=== PATIENT | female | born 1975 | race Caucasian/White ===

== ENCOUNTER 2019-09-17 12:29 | Outpatient (CLI) | payer OTHER, SELFPAY ==
--- NOTE | ~2019-09-17 | XR_ITS ---
EXAMINATION: XR lg joint inject/asp w image DATE: 09/17/2019 13:28 INDICATION: Left hip arthritis. TECHNIQUE: A time-out was performed to verify the patient's name, date of , and procedure to b e performed. The procedure including the risks, benefits, and alternatives was discussed with the pat ient. Risks discussed included bleeding and infection. The patient understood the risks and agreed to proceed. The skin overlying the left hip joint was prepped and draped in usual sterile fashion. An esthetic was administered with 1% lidocaine subcutaneously. A 22 G needle was advanced under fluoros copic guidance into the joint. Injection of 1 mL of Omnipaque 240 confirmed intra-articular position of the needle. Subsequently, injectate consisting of 2 mL 0.5% bupivacaine and 1 mL 80 mg/mL Depo-M edrol was instilled. The needle was removed and the entry site was cleaned and dressed. There were no immediate complications. Fluoroscopy exposure time was 0.1 minutes. The total number of images was 2. FINDINGS: Real-time fluoroscopy demonstrates the needle in the left hip joint. Patient's pain prior t o procedure:12/06. Patient's pain following the procedure: 04/08. IMPRESSION: 1. Left hip joint injection of local anesthetic and steroid with decrease in the patient's presenting pain. Reviewed, dictated and finalized at location A. IMPRESSION: 1. Left hip joint injection of local anesthetic and steroid with decrease in th e patient's presenting pain.
== END 2019-09-17 12:30 | disposition home or self-care (01) ==
LOC: ANHIMG 12:40
PROVIDERS: PCP Family Medicine; Visit Provider Nurse Practitioner Family
DX: M16.12 Unilateral primary osteoarthritis, left hip (principal)
CPT/HCPCS: 20610; 77002; J1040; Q9966

== ENCOUNTER 2020-02-04 19:41 | Inpatient (IN) | payer OTHER, SELFPAY ==
--- NOTE | ~2020-02-04 | CT_ITS ---
EXAMINATION: CT abdomen pelvis w con INDICATION: Lower abdominal abscess TECHNIQUE: Computed tomographic images of the abdomen and pelvis were obtained after the administrati on of 100 cc of Omnipaque 350 intravenous contrast. The dose-length product (DLP) was 1515.68 mGy-cm. Automated exposure control and iterative reconstruction technique were employed. COMPARISON: 01/29/2018 FINDINGS: The lung bases are clear. The heart size is normal. The liver is diffusely low in attenuati on when compared with the spleen, consistent with hepatic steatosis. There is a stable 1.7 cm subcaps ular enhancing lesion of the left hepatic lobe, likely a flash filling hemangioma or possibly a hepat ic adenoma. The spleen, pancreas, and adrenal glands are normal. The gallbladder is surgically absent . There is a 3 mm nonobstructing stone of the right kidney upper pole. An adjacent area of chronic co rtical scarring is noted in the right kidney. There is a 10 mm cyst of the right kidney. The left kid garett is unremarkable. No pathologically enlarged abdominal or pelvic lymph nodes are identified. There is a moderate volume of colonic stool. There is no free intraperitoneal gas or evidence of bowel obs truction. The appendix is normal. There is a 3.1 x 1.6 cm abscess with surrounding soft tissue edema involving the lower aspect of the pannus just left of midline. There is fluid attenuation in the endo metrial canal of unclear etiology. IMPRESSION: 1. 3.1 x 1.6 cm soft tissue abscess involving the pannus of the left lower quadrant with surrounding cellulitis. 2. Fluid attenuation in the endometrial canal of unclear etiology. Follow-up with nonemergent pelvic ultrasound is recommended. 3. Diffuse hepatic steatosis. Reviewed, dictated and finalized at location A. TION MAKER IMPRESSION: 1. 3.1 x 1.6 cm soft tissue abscess involving the pannus of the left lower quad rant with surrounding cellulitis. 2. Fluid attenuation in the endometrial canal of unclear etiology. Follow-up [facility] nonemergent pelvic ultrasound is recommended. 3. Diffuse hepatic steatosis.
[2020-02-04 19:44] VITALS: BP 143/92; PULSE 135; RESP 15; TEMP 36.4; O2SAT 100
--- NOTE | 2020-02-04 21:17 | ECG_ITS ---
Measurements Intervals Gardner Rate: 112 P: 59 AR: 181 QRS: 34 QRSD: 83 T: 36 QT: 327 QTc: 447 Interpretive Statements SINUS TACHYCARDIA ABNORMAL ECG Electronically Signed On 02-05-2020 7:00:42 STUDENT DEAN by Narinder Francois D.O.
[2020-02-04 21:44] LABS: Basophils Percent Auto 0.3 % (0.2-1.2); Eosinophils Absolute Auto 0.1 K/mm3 (0-0.3); Eosinophils Percent Auto 0.8 % (0-4.4); Hematocrit 46.9 % (37.0-47.0); Immature Granulocyte Absolute 0.09 K/mm3 (0.00-0.031); Immature Granulocyte Percent A 0.6 % (0-0.5); Lymphocytes Percent Auto 10.1 % (18.3-44.2); Mean Corpuscular HGB Conc 34.1 g/dl (32-36); Mean Corpuscular Hemoglobin 33.1 pg (26-34); Mean Corpuscular Volume 97.1 fl (80-100); Mean Platelet Volume 9.6 fl (7.4-10.4); Monocytes Absolute Auto 1.7 K/mm3 (0.1-0.6); Monocytes Percent Auto 11.5 % (2.6-8.5); Neutrophils Absolute Auto 11.3 K/mm3 (1.3-6.7); Neutrophils Percent Auto 76.7 % (45.5-73.1); Platelet Count Result 243 k/mm3 (150-375); Red Blood Count 4.83 M/mm3 (4.2-5.4); Red Cell Distribution Width 12.8 % (11.5-14.5); White Blood Count 14.8 K/mm3 (4.5-10.0)
[2020-02-04 21:53] LABS: INR 1.1; Prothrombin Time 14.7 Seconds (11.1-14.7)
[2020-02-04 21:54] LABS: Partial Thromboplastin Time 26.8 SECONDS (22.3-36.8)
[2020-02-04 21:58] LABS: Glucose Point of Care 259 (65-105)
[2020-02-04 21:59] LABS: Alanine Aminotransferase 43 U/L (4-35); Albumin Level 3.8 g/dL (3.5-5.1); Alkaline Phosphatase 150 U/L (38-126); Anion Gap 11 mmol/L (8-16); Aspartate Amino Transferase 27 U/L (14-36); Bilirubin,Total 0.6 mg/dL (0.2-1.3); Blood Urea Nitrogen 11 mg/dL (7-17); Calcium 9.4 mg/dL (8.4-10.2); Carbon Dioxide 18 mmol/L (22-30); Chloride 103 mmol/L (98-107); Estimated CRCL calculation 137 ml/min; Estimated Glomerular Filt Rate > 60; Glucose 286 mg/dL (65-105); Potassium 4.1 mmol/L (3.4-5.0); Sodium 132 mmol/L (137-145)
[2020-02-04 22:01] VITALS: BP 138/73; PULSE 115; RESP 16; O2SAT 99
[2020-02-04] MEDS: SODIUM CHLORIDE 0.9% IV 1,000 ML 999 ML IV CONT (22:23)
--- NOTE | 2020-02-04 22:26 | ED.SKABFB ---
HPI - Skin/Abscess/Foreign Bdy General Chief complaint: Skin/Abscess/Foreign Body Stated complaint: i have boils Time Seen by Provider: 02/04/20 20:58 Source: patient Mode of arrival: ambulatory Limitations: no limitations History of Present Illness HPI narrative: This patient is a 44 year old female with history of diabetes mellitus who presents for evaluation of an abdominal wall abscess. She states she noticed what appeared to be small pimple to her lower abdominal wall 5 days ago. She has been using an over the counter medication PRID to help bring wound to head. She noticed worsening swelling and redness to the area 3 days ago. She is having severe pain when she walks due to her pain. She also noticed purulent drainage yesterday. She reports nausea but no fever. She is fatigued. She denies vomiting. She does not check her blood sugar regularly and she does not take medication for her diabetes. Related Data Home Medications Medication Instructions Recorded Confirmed ibuprofen 200 mg capsule 200 mg PO Q6H PRN 03/29/19 02/05/20 meloxicam 7.5 mg tablet 7.5 mg PO DAILY PRN 08/22/19 02/05/20 Symbicort 2 puff INHALATION DAILY 02/05/20 02/05/20 albuterol sulfate [Ventolin HFA] 2 puff INHALATION Q6H PRN 02/05/20 02/05/20 Allergies Allergy/AdvReac Type Severity Reaction Status Date / Time No Known Allergies Allergy Unknown Verified 02/04/20 19:49 Review of Systems Review of Systems: All systems reviewed & are unremarkable except as noted in HPI and below Constitutional: Constitutional: Denies chills, Reports fatigue and Denies fever(s) Respiratory: Respiratory: Denies dyspnea Gastrointestinal: Gastrointestinal: Reports abdominal pain, Denies diarrhea, Reports nausea and Denies vomiting PMFSH Past Medical History Medical History (Updated 02/05/20 @ 06:42 by Cathy Mackey MD) Actinic keratosis Contusion of finger of right hand Degenerative joint disease of left hip History of basal cell carcinoma (BCC) Lateral epicondylitis of right elbow Left hip pain Skin cancer screening Trochanteric bursitis, left hip Surgical History Surgical History (Updated 02/05/20 @ 06:36 by Cathy Mackey MD) H/O tubal ligation Hx of cholecystectomy Family History Family History Other Diabetes mellitus Family history of alcoholism Family history of arthritis Family history of malignant neoplasm Family history of mental disorder Social History Social History Smoking packs per day: 0.5 Smoking cigarettes per day: 10.0 Years smoked: 30 Smoking pack-years: 15.00 Smoking status: Current every day smoker Tobacco type: cigarettes Alcohol intake: former Substance use: never Gender identity (if verbalized by the patient): Female Sexual Orientation (if Verbalized by the Patient): Straight or Heterosexual Spiritual care concerns: No Exam Const: General: alert; No ill appearing Nutritional Appearance: obese Orientation/consciousness: patient oriented x3 Other: mild distress due to pain HENMT: Head: normocephalic and atraumatic Face and sinus: face symmetric Throat: posterior oropharynx normal, tonsils normal and uvula midline Eyes: EOM: EOMs intact bilaterally Resp: Effort & Inspection: normal respiratory effort and no retractions Auscultation: clear to auscultation bilaterally Cardio: Rate: tachycardic Rhythm: regular rhythm Heart sounds: no murmurs GI: GI Palp: Yes Soft to palpation, Yes Tenderness to palpation present (GI) (at lower abdominal wall at location of cellulitis and abscess) and No Rigid due to palpation Skin: Other: patient with large lower abdominal wall area of erythema with an open wound draining odorous dark brown fluid, their is a central area of necrosis Neuro: General: patient oriented x3 and moves all extremities Psych: Mental Status: mental s
[2020-02-04] MEDS: HYDROcodone/acetaminophen (*CRX) 5-325 MG TABLET 1 TAB PO (22:41)
[2020-02-04 22:49] LABS: Add Urine Microscopic? YES; Appearance Urine Clear (Clear); Bacteria Urine Trace /hpf; Bilirubin Urine Negative (Negative); Blood Urine 1+ (Negative); Color Urine Yellow (Yellow); Glucose Urine UA 3+ mg/dL (Negative); Ketones Urine 2+ mg/dL (Negative); Leukocyte Esterase Ur Negative LEU/UL (Negative); Mucus Urine Rare /lpf; Nitrate Urine Negative (Negative); Protein Urine 2+ mg/dL (Negative); Squamous Epithelial Cell Urine Few /hpf (Few); Urobilinogen Urine Negative mg/dL (<2.0); WBC Urine 0-3 /hpf
[2020-02-04 23:47] LABS: Fractional Inspired Oxygen 21 %; PO2 VBG 30.6 mmHg (35.0-45.0)
[2020-02-04 23:49] LABS: Device ROOM AIR; pH VBG 7.244 (7.300-7.400)
[2020-02-05] LABS: Beta-Hydroxybutyrate/Acetoacetate 3.53 mmol/L (0.02-0.27)
[2020-02-05 00:12] LABS: Glucose Point of Care 281 (65-105)
[2020-02-05] MEDS: LIDOCAINE HCL 2% LOCAL INJ 20 ML VIAL (00:15)
[2020-02-05 01:17] LABS: Anion Gap 12 mmol/L (8-16); Blood Urea Nitrogen 8 mg/dL (7-17); Calcium 8.5 mg/dL (8.4-10.2); Carbon Dioxide 14 mmol/L (22-30); Chloride 104 mmol/L (98-107); Estimated CRCL calculation 166 ml/min; Estimated Glomerular Filt Rate > 60; Glucose 269 mg/dL (65-105); Magnesium 1.7 mg/dL (1.6-2.3); Phosphorus 3.1 mg/dL (2.5-4.5); Potassium 3.8 mmol/L (3.4-5.0); Sodium 130 mmol/L (137-145)
[2020-02-05 01:26] LABS: Hemoglobin A1C 10.4 % (<5.7)
--- NOTE | 2020-02-05 02:08 | PM.IMHP ---
H&P: HPI History of Present Illness Date/Time: 02/05/20 02:08 Chief complaint: Diabetic ketoacidosis, sepsis, Narrative: This is a 44-year-old diabetic female who presented to the hospital [facility] with a lower abdominal wall infection. She describes that this started out as a small boil this past Monday and very quickly worsened. Since then her infection has become a lot larger and has ulcerated and is draining if foul smelling discharge. She has an black necrotic area in the center of her wound. The patient denies any previous history of MRSA. she also denies any associated fever, chills, chest pain, shortness of breath, cough, palpitations, dysuria, hematuria, diarrhea, rectal bleeding, or lower extremity swelling. [facility] she is also complaining of abdominal discomfort around her wound. The patient was evaluated emergency room and she was found to be septic with an elevated white blood cell count of 14,800 and tachycardia. Patient has been started on vancomycin IV and imipenem. ER provider has debrided a part of her wound. Routine labs also demonstrated metabolic acidosis although the patient does not have an elevated anion gap. ER provider has consulted general surgery for possible wound debridement. She has also consulted our production line assembler, Dr. Portillo. The patient has no other complaints. Review of Systems Review of Systems: All systems reviewed & are unremarkable except as noted in HPI and below PMFSH Past Medical History Medical History Actinic keratosis Contusion of finger of right hand Degenerative joint disease of left hip History of basal cell carcinoma (BCC) Lateral epicondylitis of right elbow Left hip pain Skin cancer screening Trochanteric bursitis, left hip Type 2 diabetes mellitus Surgical History Surgical History H/O tubal ligation History of delivery x 1 History of knee surgery Hx of cholecystectomy laparoscopic Family History Family History Other Diabetes mellitus Family history of alcoholism Family history of arthritis Family history of malignant neoplasm Family history of mental disorder Social History Social History Smoking packs per day: 0.5 Smoking cigarettes per day: 10.0 Years smoked: 30 Smoking pack-years: 15.00 Smoking status: Current every day smoker Tobacco type: cigarettes Alcohol intake: former Substance use: never Gender identity (if verbalized by the patient): Female Sexual Orientation (if Verbalized by the Patient): Straight or Heterosexual Spiritual care concerns: No Meds Home Medications and Allergies Home Medications Medication Instructions Recorded Confirmed Type ibuprofen 200 mg capsule 200 mg PO Q6H PRN 03/29/19 02/05/20 History meloxicam 7.5 mg tablet 7.5 mg PO DAILY PRN 08/22/19 02/05/20 History Symbicort 2 puff INHALATION DAILY 02/05/20 02/05/20 History albuterol sulfate [Ventolin HFA] 2 puff INHALATION Q6H PRN 02/05/20 02/05/20 History Allergies Allergy/AdvReac Type Severity Reaction Status Date / Time No Known Allergies Allergy Unknown Verified 02/04/20 19:49 Vital Signs Vital Signs - 24 hr 02/04/20 19:44 02/04/20 22:01 Temperature 36.4 C Pulse Rate 135 H 115 H Respiratory Rate 15 16 Blood Pressure 143/92 H 138/73 Pulse Oximetry 100 99 Exam Const: General: cooperative, no acute distress, alert, awake and ill appearing chronically Nutritional Appearance: obese morbidly obese Orientation/consciousness: patient oriented x3 HENMT: Head: normal to inspection General nose exam: Normal external nose present Face and sinus: normal facial exam Mouth: Yes Normal oral and palatal mucosa present and Yes oropharynx normal Eyes: Pupils: Equal, round and reactive pupils present EOM: EO
[2020-02-05 02:44] VITALS: BP 143/79; PULSE 107; RESP 18; O2SAT 97
[2020-02-05 02:49] VITALS: BMI 100.4
[2020-02-05 03:13] LABS: Alveolar/Arterial O2 Gradient 24.9 mmHg; Base Excess ABG -10.4 mEq/l (+/-2.0); Fractional Inspired Oxygen 21 %; HCO3 ABG 13.4 mEq/l (22.0-26.0); Oxygen Content ABG 19.4 %vol (16.0-22.0); Oxyhemoglobin 95.4 % THb (90.0-100.0); PCO2 ABG 25.2 mmHg (35.0-45.0); PO2 ABG 94.7 mmHg (80.0-100.0); PO2 FiO2 Ratio Arterial Blood 4.51 %; Total Hemoglobin 14.4 g/dL (12.0-18.0); pH ABG 7.344 (7.350-7.450)
[2020-02-05 03:14] LABS: Modified Allen's Test Pass; Site Drawn LEFT RADIAL
[2020-02-05] MEDS: MORPHINE SULFATE (*CRX) 4 MG/ML INJ IV PUSH (03:49)
[2020-02-05] MEDS: SODIUM CHLORIDE 0.9% IV 1,000 ML 150 ML IV CONT ×3 (03:50→14:45)
[2020-02-05 04:00] VITALS: BP 125/68; PULSE 109; RESP 18; TEMP 36.8; O2SAT 98
[2020-02-05 04:38] LABS: Basophils Absolute Auto 0.1 K/mm3 (0.0-0.1); Basophils Percent Auto 0.5 % (0.2-1.2); Eosinophils Absolute Auto 0.2 K/mm3 (0-0.3); Eosinophils Percent Auto 1.1 % (0-4.4); Hematocrit 43.4 % (37.0-47.0); Hemoglobin 14.6 g/dL (12.0-15.0); Immature Granulocyte Absolute 0.08 K/mm3 (0.00-0.031); Immature Granulocyte Percent A 0.5 % (0-0.5); Lymphocytes Absolute Auto 2.33 K/mm3 (0.9-3.2); Lymphocytes Percent Auto 15.5 % (18.3-44.2); Mean Corpuscular HGB Conc 33.6 g/dl (32-36); Mean Corpuscular Hemoglobin 32.2 pg (26-34); Mean Corpuscular Volume 95.6 fl (80-100); Mean Platelet Volume 9.8 fl (7.4-10.4); Monocytes Absolute Auto 2.4 K/mm3 (0.1-0.6); Monocytes Percent Auto 16.2 % (2.6-8.5); Neutrophils Percent Auto 66.2 % (45.5-73.1); Platelet Count Result 212 k/mm3 (150-375); Red Blood Count 4.54 M/mm3 (4.2-5.4); Red Cell Distribution Width 12.6 % (11.5-14.5); White Blood Count 15.1 K/mm3 (4.5-10.0)
[2020-02-05 05:01] LABS: Anion Gap 8 mmol/L (8-16); Blood Urea Nitrogen 7 mg/dL (7-17); Calcium 8.3 mg/dL (8.4-10.2); Carbon Dioxide 15 mmol/L (22-30); Chloride 106 mmol/L (98-107); Estimated CRCL calculation 295 ml/min; Estimated Glomerular Filt Rate > 60; Glucose 277 mg/dL (65-105); Magnesium 1.7 mg/dL (1.6-2.3); Potassium 3.6 mmol/L (3.4-5.0); Sodium 129 mmol/L (137-145)
[2020-02-05 06:00] VITALS: BP 127/85; PULSE 109; RESP 16; TEMP 36.8; O2SAT 99
[2020-02-05 08:00] VITALS: BP 137/69; PULSE 118; PULSE 121; RESP 26; TEMP 36.8; O2SAT 98
[2020-02-05] MEDS: POTASSIUM CHLORIDE 20 MEQ PACKET (FOR LIQUID) 40 MEQ PO (08:09)
[2020-02-05] MEDS: ONDANSETRON INJ 4 MG/2 ML VIAL IV PUSH (08:13)
[2020-02-05 08:19] LABS: Glucose Point of Care 240 (65-105)
[2020-02-05] MEDS: INSULIN ASPART (*BKC) 100 UNITS/ML SUB-Q ×4 (08:59→21:18)
[2020-02-05] MEDS: MAGNESIUM SULF 2 GM/WATER 50ML 2 GM/50 ML BAG IVPB (09:00)
[2020-02-05 10:00] VITALS: BP 145/70; PULSE 110; PULSE 111; O2SAT 31
--- NOTE | 2020-02-05 11:22 | PM.CNGS ---
Assessment and Plan Assessment and plan (1) Abdominal wall abscess: Code(s): L02.211 - Cutaneous abscess of abdominal wall Status: Acute Assessment and Plan: CT scan reviewed and discussed with the patient in detail. She has evidence of a 3.1 x 1.6 cm soft tissue abscess involving the pannus of the left lower quadrant with surrounding cellulitis. The ED physician attempted an incision and drainage of the abscess at an area just below the open necrotic wound. There is currently packing in this spot. On my exam, the patient is still extremely tender and appears to have purulent drainage coming from the lower abdominal incision, along with a necrotic wound above the incision that may require excisional debridement. It does not appear that the patient would tolerate any bedside debridement or further exploration of the abscess in the area of the previously made incision. I discussed the patient's case with Dr. Medina. He will plan to proceed with incision and drainage of the lower abdominal wall abscess, with possible excisional debridement tomorrow morning in the operating room with sedation. Description of the procedure, risks, benefits, indications, and expected outcomes were discussed with the patient in detail. She agrees to proceed. This will allow us to gain source control and adequately drain the abscess, along with being able to perform a debridement of the necrotic wound. Continue broad-spectrum IV antibiotics, IV fluids, and analgesics as needed. It is okay from a surgical standpoint for the patient to eat today and we will make her NPO after midnight. Thank you for allowing us to see the patient in consultation and we will continue to follow along with you. (2) Abdominal wall cellulitis: Code(s): L03.311 - Cellulitis of abdominal wall Status: Acute Assessment and Plan: See plan above. (3) Leukocytosis: Qualifiers: Leukocytosis type: unspecified Qualified Code(s): D72.829 - Elevated white blood cell count, unspecified Code(s): D72.829 - Elevated white blood cell count, unspecified Status: Acute Assessment and Plan: WBC count of 15,100 today. Continue IV antibiotics and trend labs. See plan above. (4) Uncontrolled diabetes mellitus: Code(s): E11.65 - Type 2 diabetes mellitus with hyperglycemia Status: Chronic Assessment and Plan: Hgb A1C 10.4. She has stopped all her medications and has not had any home medications for about 3 years. I discussed with her the importance of tight glycemic control for healing. Diabetic management per hospitalist. (5) Sepsis: Code(s): A41.9 - Sepsis, unspecified organism Status: Acute Assessment and Plan: Criteria met on admission. Tachycardia and leukocytosis in the setting of an abscess. Wound culture pending. Blood cultures pending. Continue to trend labs. Continue IV fluids and broad-spectrum IV antibiotics. Will need source control, with plans to go to the OR tomorrow morning for incision and drainage and possible debridement. See plan above. (6) Tachycardia: Code(s): R00.0 - Tachycardia, unspecified Status: Acute Assessment and Plan: Improving with current treatment. Current heart rate 110. EKG showed sinus tachycardia. Likely multifactorial due to infection, sepsis, and pain. Management per Hospitalist. Additional Plan Discussed the patient's plan of care and case with Dr. Medina. History of Present Illness Consult details Consult date: 02/05/20 Reason for consult: other (Lower abdominal wall cellulitis and abscess) Requesting physician: Cathy Mackey MD Narrative: This is a 44-year-old obese female with history of type 2 diabetes mellitus, who presented to the emergency department last night with complaints lower abdominal redness and pain. The patient reportedly has been a known diabetic for about 11 years and decided to stop all her diabetes
[2020-02-05 12:00] VITALS: BP 130/68; PULSE 111; PULSE 112; RESP 25
[2020-02-05] MEDS: INSULIN GLARGINE (*BKC) 100 UNITS/ML 20 UNITS SUB-Q (12:21)
[2020-02-05 12:27] LABS: Glucose Point of Care 267 (65-105)
--- NOTE | 2020-02-05 13:42 | WPDCNINT ---
Assessment and Plan Assessment and plan (1) Sepsis: Code(s): A41.9 - Sepsis, unspecified organism Status: Acute Assessment and Plan: Secondary to abdominal wall abscess. 3.1 x 1.6 cm soft tissue abscess involving the pannus of the left lower quadrant with surrounding cellulitis. Patient presented with tachycardia and leukocytosis. Her lactic acid level was normal and she was never hypertensive S/P brief I and D done by ED physician. Patient seen by general surgery now and plan for thorough debridement tomorrow morning in OR Continue IV fluid. Patient was given 1 L saline bolus in ED Patient is on vancomycin and Imipenem which will be continued (2) Abdominal wall abscess: Code(s): L02.211 - Cutaneous abscess of abdominal wall Status: Acute Assessment and Plan: See above (3) Abdominal wall cellulitis: Code(s): L03.311 - Cellulitis of abdominal wall Status: Acute Assessment and Plan: See plan above. (4) Uncontrolled diabetes mellitus: Code(s): E11.65 - Type 2 diabetes mellitus with hyperglycemia Status: Chronic Assessment and Plan: Hgb A1C 10.4. She has stopped all her medications and has not had any home medications for about 3 years. I discussed with her the importance of tight glycemic control for healing. Initially plan was to start IV insulin but her anion gap closed. She has been started now on Lantus and sliding scale. will adjust depending on the response (5) Tachycardia: Code(s): R00.0 - Tachycardia, unspecified Status: Acute Assessment and Plan: Secondary to sepsis improved with rehydration fluids (6) COPD (chronic obstructive pulmonary disease): Code(s): J44.9 - Chronic obstructive pulmonary disease, unspecified Status: Acute Assessment and Plan: Patient is a chronic smoker with 15 pack-year history. States she has COPD. No wheezing on exam Continue bronchodilators p.r.n. and Symbicort Additional Plan Discussed the patient's plan of care and case with general surgery nurse practitioner. Plan to transfer patient out of ICU today DVT prophylaxis -SCDs for now. Defer chemoprophylaxis to post I&D tomorrow morning Stress ulcer prophylaxis - NA Nutrition -diabetic diet Code Status - Full Code Newspaper Library Manager Consult Note Consult date: 02/05/20 Time Seen: 08:00 HPI: aNt Chavarria is a 44 year old morbidly obese diabetic female who presented to the hospital last night with a lower abdominal wall pain and infection. She describes that this started out as a small boil this past Monday and very quickly worsened with increased redness and pain. She denied any fever. She was diagnosed with abscess of the abdominal wall. Mild debridement was done at bedside by ED physician. Patient was given IV fluid bolus and started on antibiotics. Patient also was hypoglycemic and was diagnosed with DKA. IV insulin was ordered patient was admitted to ICU for further evaluation and management. By the time patient arrived to ICU her anion gap had closed. Patient was transitioned to subcutaneous insulin and IV fluids were continue This morning she does feel better and pain and the wound site is present but is improved. She told me that she has history of diabetes and was on metformin until 3 years ago when she quit because she was suspecting that metformin was causing her to gain weight. Never took any other medication for diabetes since then. She is not currently on any medication. She denies any fever to me but did have chills. Patient denied chest pain, shortness of breath, cough, nausea vomiting, abdominal pain except at the wound site, diarrhea, headache or constipation. All other systems were reviewed and were negative Review of Systems Review of Systems: All systems reviewed & are unremarkable except as noted in HPI and below (HPI) [facility] Past Medical History Medical History (Reviewed 02/05/20 @
--- NOTE | 2020-02-05 14:33 | PC.NURSE ---
This patient, Nat Chavarria, was transferred from ICU bed 8 at 1434. Patient is oriented to policies and procedures.
--- NOTE | 2020-02-05 14:43 | PC.NURSE ---
This patient, Nat Chavarria, was transferred to [facility] on 02/05/20 at 1440. Personal belongings sent with patient. Report given to Carole SNOW. Appropriate documentation sent with patient.
[2020-02-05] MEDS: HYDROcodone/acetaminophen (*CRX) 5-325 MG TABLET 1 TAB PO (14:45)
[2020-02-05 15:50] VITALS: BMI 46.1
[2020-02-05 17:03] LABS: Glucose Point of Care 296 (65-105)
[2020-02-05 21:29] LABS: Glucose Point of Care 252 (65-105)
[2020-02-06] VITALS (14 sets, daily range): BP systolic 117–149; BP diastolic 50–84; PULSE 77–106; RESP 16–29; TEMP 35.7–37; O2SAT 94–99
[2020-02-06 00:06] LABS: Glucose Point of Care 258 (65-105)
[2020-02-06] MEDS: MORPHINE SULFATE (*CRX) 4 MG/ML INJ IV PUSH ×2 (01:33→05:21)
[2020-02-06] MEDS: ONDANSETRON INJ 4 MG/2 ML VIAL IV PUSH ×3 (01:38→21:55)
[2020-02-06 05:09] LABS: Glucose Point of Care 266 (65-105)
[2020-02-06] MEDS: INSULIN ASPART (*BKC) 100 UNITS/ML SUB-Q ×4 (05:22→20:49)
[2020-02-06 06:10] LABS: Basophils Percent Auto 0.3 % (0.2-1.2); Eosinophils Absolute Auto 0.1 K/mm3 (0-0.3); Eosinophils Percent Auto 0.5 % (0-4.4); Hematocrit 38.9 % (37.0-47.0); Hemoglobin 13.2 g/dL (12.0-15.0); Immature Granulocyte Percent A 0.7 % (0-0.5); Lymphocytes Absolute Auto 2.56 K/mm3 (0.9-3.2); Mean Corpuscular HGB Conc 33.9 g/dl (32-36); Mean Corpuscular Hemoglobin 31.7 pg (26-34); Mean Corpuscular Volume 93.5 fl (80-100); Mean Platelet Volume 9.5 fl (7.4-10.4); Monocytes Absolute Auto 1.7 K/mm3 (0.1-0.6); Monocytes Percent Auto 12.1 % (2.6-8.5); Neutrophils Absolute Auto 9.8 K/mm3 (1.3-6.7); Neutrophils Percent Auto 68.4 % (45.5-73.1); Platelet Count Result 235 k/mm3 (150-375); Red Blood Count 4.16 M/mm3 (4.2-5.4); Red Cell Distribution Width 12.5 % (11.5-14.5); White Blood Count 14.3 K/mm3 (4.5-10.0)
[2020-02-06 06:19] LABS: Alanine Aminotransferase 58 U/L (4-35); Albumin Level 2.9 g/dL (3.5-5.1); Alkaline Phosphatase 146 U/L (38-126); Anion Gap 6 mmol/L (8-16); Aspartate Amino Transferase 57 U/L (14-36); Bilirubin,Total 0.4 mg/dL (0.2-1.3); Blood Urea Nitrogen 5 mg/dL (7-17); Calcium 8.1 mg/dL (8.4-10.2); Carbon Dioxide 19 mmol/L (22-30); Chloride 103 mmol/L (98-107); Estimated CRCL calculation 220 ml/min; Estimated Glomerular Filt Rate > 60; Glucose 272 mg/dL (65-105); Potassium 3.5 mmol/L (3.4-5.0); Sodium 128 mmol/L (137-145)
[2020-02-06 06:23] LABS: Estimated CRCL calculation 220 ml/min; Estimated Glomerular Filt Rate > 60
[2020-02-06] MEDS: LACTATED RINGERS 1,000 ML 30 ML IV CONT (07:28)
--- NOTE | 2020-02-06 07:33 | WPDHPUPDATE1 ---
History and Physical Update Update Date/Time: 02/06/20 07:33 History and Physical has been reviewed, including an updated exam of the patient. There are changes in the patient's condition. Her labs this AM are noted. Na+ is still somewhat low and glucose still in the 200's. Risks, benefits, and alternatives have been discussed and questions answered. Patient agrees to proceed with procedure.
--- NOTE | 2020-02-06 07:44 | WPDANESEPPF ---
Anes - Initial Pre Proc Eval Procedure: Operation Date: 02/06/20 08:30 Proposed Procedures p Incision and Drainage Lower Abdominal Wall Abscess, Possible Debridement - Pedro Luis Medina MD Date/Time: 02/06/20 07:44 Surgeon: José Manuel Adams MD Pre Op Diagnosis: Diabetic ketoacidosis, sepsis, Patient Data Age: 44 Gender: F Height: 5 ft 2 in Weight: 114.6 kg Last Vital Signs Temp 97.0 F L 02/06/20 07:41 Pulse 102 H 02/06/20 07:41 Resp 20 02/06/20 07:41 BP 149/82 H 02/06/20 07:41 Pulse Ox 97 02/06/20 07:41 Allergies Allergy/AdvReac Type Severity Reaction Status Date / Time No Known Allergies Allergy Unknown Verified 02/04/20 19:49 Home Medications Medication Instructions Recorded Confirmed Type ibuprofen 200 mg capsule 200 mg PO Q6H PRN 03/29/19 02/05/20 History meloxicam 7.5 mg tablet 7.5 mg PO DAILY PRN 08/22/19 02/05/20 History Symbicort 2 puff INHALATION DAILY 02/05/20 02/05/20 History albuterol sulfate [Ventolin HFA] 2 puff INHALATION Q6H PRN 02/05/20 02/05/20 History Laboratory Tests 02/05/20 02/05/20 02/05/20 08:17 12:20 16:44 WBC RBC Hgb Hct MCV MCH MCHC RDW Plt Count MPV Immature Gran % (Auto) Neut % (Auto) Lymph % (Auto) Atkinson % (Auto) Eos % (Auto) Baso % (Auto) Lymph # (Auto) Atkinson # (Auto) Eos # (Auto) Baso # (Auto) Abs Immat Gran (auto) Absolute Neuts (auto) Absolute Nucleated RBC Nucleated RBC % Sodium Potassium Chloride Carbon Dioxide Anion Gap BUN Creatinine Estim Creat Clear Calc Estimated GFR Glucose POC Capillary Glucose 240 mg/dl H mg/dl 267 mg/dl H mg/dl 296 mg/dl H mg/dl (65-105) (65-105) (65-105) Calcium Total Bilirubin AST ALT Alkaline Phosphatase Total Protein Albumin Blood Type Antibody Screen 02/05/20 02/06/20 02/06/20 21:17 00:04 05:06 WBC RBC Hgb Hct MCV MCH MCHC RDW Plt Count MPV Immature Gran % (Auto) Neut % (Auto) Lymph % (Auto) Atkinson % (Auto) Eos % (Auto) Baso % (Auto) Lymph # (Auto) Atkinson # (Auto) Eos # (Auto) Baso # (Auto) Abs Immat Gran (auto) Absolute Neuts (auto) Absolute Nucleated RBC Nucleated RBC % Sodium Potassium Chloride Carbon Dioxide Anion Gap BUN Creatinine Estim Creat Clear Calc Estimated GFR Glucose POC Capillary Glucose 252 mg/dl H mg/dl 258 mg/dl H mg/dl 266 mg/dl H mg/dl (65-105) (65-105) (65-105) Calcium Total Bilirubin AST ALT Alkaline Phosphatase Total Protein Albumin Blood Type Antibody Screen 02/06/20 02/06/20 02/06/20 05:30 05:30 05:30 WBC 14.3 K/mm3 H K/mm3 (4.5-10.0) RBC 4.16 M/mm3 L M/mm3 (4.2-5.4) Hgb 13.2 g/dL g/dL (12.0-15.0) Hct 38.9 % % (37.0-47.0) MCV 93.5 fl fl (80-100) MCH 31.7 pg pg (26-34) MCHC 33.9 g/dl g/dl (32-36) RDW 12.5 % % (11.5-14.5) Plt Count 235 k/mm3 k/mm3 (150-375) MPV 9.5 fl fl (7.4-10.4) Immature Gr
[2020-02-06] MEDS: LIDO 2%/EPINEPHRINE 1:100,000 20 ML VIAL 10 ML INFILTRATE (08:53)
[2020-02-06 09:33] LABS: Glucose Point of Care 194 (65-105)
[2020-02-06] MEDS: fentaNYL CITRATE INJ (*CRX) 100 MCG/2 ML VIAL 25 MCG IV PUSH ×4 (09:55→10:13)
--- NOTE | 2020-02-06 09:58 | PM.PROC ---
Procedure Note - Detailed Date of procedure: 02/06/20 Pre-op diagnosis: Diabetic ketoacidosis, sepsis, Skin and subcutaneous abscess of the left lower abdominal wall Post-op diagnosis: same Procedure performed: Debridement of skin and subcutaneous tissue with incision drainage of abscess left lower abdominal wall (excisional, including skin subcutaneous tissue no fascia or muscle). Description of procedure: Patient was placed in the supine position on the operating table and after induction of adequate general anesthesia with LMA by [facility] anesthesia we proceeded to prep the lower abdomen. I held the abdominal panniculus and we trimmed the hair in the suprapubic area and then sprayed the area with Betadine liquid. Following this the abdomen was draped in usual sterile fashion exposing the area of the abscess and cellulitis of the lower abdominal wall at and just below the fold of the panniculus. Following this time-out was performed confirming patient site of surgery. Patient had received her scheduled antibiotics early this morning. These will continue on a scheduled basis. Following this I measured the area of necrotic tissue overlying the abscess and this was about 4 x 3 cm in size . Directly inferior to this was the opening that was created into the abscess by the ER physician with an I & D. These 2 openings connected when they were probed. Therefore, I started superiorly and excised all necrotic skin and subcutaneous fat in the area of the abscess. Fingers of the abscess extended somewhat to the left but more to the right coming across midline and went down to the fascia near the mid-line of the abdomen but did not appear to be causing fasciitis. All necrotic subcutaneous tissue was excised. Hemostasis was achieved with Bovie cautery. We then used 1 L of saline to carefully irrigate the entire open wound with a Pulsavac treatment. Following this hemostasis was again checked and when this was assured we packed the wound open with 10 cc of local anesthetic applied to the 1st portion of the Kerlix roll that was unrolled and placed into the abdominal wound and bascially filled the wound up to the skin level. Following this 4x4s were applied over this, then to ABDs,followed by Medipore tape to completely seal the wound. Implants: None Anesthesia: GLMA Surgeon: Pedro Luis Medina MD Receivable Manager: EDY Rajput, OR 1st assist Estimated blood loss (mL): 100 Drains: No Packing: Yes (1 Kerlix roll) Pathology: yes (Skin and the subcutaneous fat from lower abdomen.) Complications: No immediate complications Condition: stable Disposition: PACU Findings: An extensive area of subcutaneous abscess underlying the obvious skin necrosis on the left lower abdominal wall. This extended down to fascia centrally at the base of the wound but did not appear to be causing fasciitis.
--- NOTE | 2020-02-06 09:59 | SUR.PHASEI ---
[id number] - dr. villarreal at bedside talking with pt
[2020-02-06] MEDS: HYDROcodone/acetaminophen (*CRX) 7.5-325 MG TABLET 1 TAB PO ×2 (11:48→20:50)
[2020-02-06] MEDS: INSULIN GLARGINE (*BKC) 100 UNITS/ML 20 UNITS SUB-Q (11:55)
[2020-02-06] MEDS: SODIUM CHLORIDE 0.9% IV 1,000 ML 150 ML IV CONT ×2 (12:00→23:11)
[2020-02-06] MEDS: ENOXAPARIN 40 MG/0.4 ML SYRINGE SUB-Q (12:04)
[2020-02-06] MEDS: KETOROLAC 30 MG/ML VIAL (*BKC) IV PUSH ×3 (12:10→23:29)
[2020-02-06 12:39] LABS: Vancomycin Trough 6.5 ug/mL (10.0-20.0)
[2020-02-06 13:09] LABS: Glucose Point of Care 254 (65-105)
[2020-02-06 17:23] LABS: Glucose Point of Care 328 (65-105)
--- NOTE | 2020-02-06 17:29 | PM.IMPN ---
Progress Note: A&P Assessment and Plan (1) Abdominal wall cellulitis: Code(s): L03.311 - Cellulitis of abdominal wall Status: Acute Assessment and Plan: The patient has been admitted to ICU, Fraternity Adviser has been consulted. Continue IV antibiotics, Continue local wound care. Pain control as needed. IV hydration. General Surgery has been consulted to evaluate for debridement. Patient is a 44-year-old female with history of diabetes presented emergency department with a complaint and abscess along abdominal patient was seen by surgery team was taken to OR and had I and D today, patient complains burning pain along the surgical wound patient denies any fever or chills, patient is being treated with imipenem and vancomycin, wound culture and blood culture were collected will follow-up and further recommendation to follow (2) Metabolic acidosis: Code(s): E87.2 - Acidosis Status: Acute Assessment and Plan: Secondary to cellulitis and sepsis. Continue IV hydration. Check ABG now. We will consider sodium bicarbonate IV drip for severe acidosis. (3) Sepsis: Code(s): A41.9 - Sepsis, unspecified organism Status: Acute Assessment and Plan: w/ tachycardia and leukocytosis. Source of sepsis appears to be cellulitis. Blood cultures pending. Continue IV antibiotics, Monitor acid-base status. Monitor vital signs and urine output. (4) Uncontrolled diabetes mellitus: Code(s): E11.65 - Type 2 diabetes mellitus with hyperglycemia Status: Chronic Assessment and Plan: HgbA1c was 10.4. Accuchecks, SSI Coverage, Hyopglycemia protocol. (5) Leukocytosis: Qualifiers: Leukocytosis type: unspecified Qualified Code(s): D72.829 - Elevated white blood cell count, unspecified Code(s): D72.829 - Elevated white blood cell count, unspecified Status: Acute Assessment and Plan: Secondary to cellulitis and sepsis. Monitor CBCd. Additional Plan The patient will likely need at least 2 nights of inpatient medical therapy for her abdominal wall cellulitis and comorbid conditions listed above. Date of service was 02/05/2020 at 02:00 hrs. Subjective Date/time seen: Patient is a 44-year-old female with history of diabetes presented emergency department with a complaint and abscess along abdominal patient was seen by surgery team was taken to OR and had I and D today, patient complains burning pain along the surgical wound patient denies any fever or chills, patient is being treated with imipenem and vancomycin, wound culture and blood culture were collected will follow-up and further recommendation to follow Review of Systems Review of Systems: All systems reviewed & are unremarkable except as noted in HPI and below Exam Narrative: Exam Narrative: Morbidly obese with BMI 46 Patient is comfortable, NAD HEENT: eyes are clear and none icteric LUNGS:CTA HEART: RR S1S2 ABD: Surgical wound and dressing Lower extremities: no edema SKIN: nonjaundiced Neuro: grossly intact. Objective Data Vital Signs Vital Signs: Vital Signs - 24 hr 02/06/20 00:00 02/06/20 06:32 02/06/20 07:41 Temperature 98.1 F 98 F 97.0 F L Pulse Rate 77 105 H 102 H Respiratory Rate 16 16 20 Blood Pressure 136/68 117/50 L 149/82 H Pulse Oximetry 97 96 97 02/06/20 09:00 02/06/20 09:25 02/06/20 09:35 Temperature 98.0 F Pulse Rate 100 106 H 100 Respiratory Rate 18 29 H 20 Blood Pressure 138/52 L 133/64 Pulse Oximetry 95 98 97 02/06/20 09:50 02/06/20 10:05 02/06/20 10:35 Temperature 96.3 F L Pulse Rate 100 101 H 105 H Respiratory Rate 18 18 18 Blood Pressure 129/53 L 134/63 138/61 Pulse Oximetry 94 94 96 02/06/20 10:50 02/06/20 11:20 02/06/20 12:20 Temperature 97.2 F L 96.6 F L 96.6 F L Pulse Rate 102 H 98 100 Respiratory Rate 16 18 16 Blood Pressure 147/70 H 139/66 140/64 Pulse Oximetry 95 97 96 02/06/20 14:43 Temperature 98.4 F Pulse Rate 90 Respiratory
[2020-02-06] MEDS: SENNA/DOCUSATE SODIUM TABLET 2 TAB PO (20:41)
[2020-02-06 20:55] LABS: Glucose Point of Care 276 (65-105)
[2020-02-07 05:27] VITALS: BP 117/82; PULSE 79; RESP 14; TEMP 36.8; O2SAT 98
[2020-02-07] MEDS: KETOROLAC 30 MG/ML VIAL (*BKC) IV PUSH ×4 (05:32→23:29)
[2020-02-07] MEDS: INSULIN ASPART (*BKC) 100 UNITS/ML SUB-Q ×4 (05:35→17:46)
[2020-02-07 05:42] LABS: Hemoglobin 12.7 g/dL (12.0-15.0); Mean Corpuscular HGB Conc 34.3 g/dl (32-36); Mean Corpuscular Hemoglobin 32.3 pg (26-34); Mean Corpuscular Volume 94.1 fl (80-100); Mean Platelet Volume 9.6 fl (7.4-10.4); Platelet Count Result 236 k/mm3 (150-375); Red Blood Count 3.93 M/mm3 (4.2-5.4); Red Cell Distribution Width 12.5 % (11.5-14.5); White Blood Count 13.4 K/mm3 (4.5-10.0)
[2020-02-07 05:57] LABS: Glucose Point of Care 284 (65-105)
[2020-02-07 06:08] LABS: Anion Gap 5 mmol/L (8-16); Blood Urea Nitrogen 11 mg/dL (7-17); Calcium 8.3 mg/dL (8.4-10.2); Carbon Dioxide 23 mmol/L (22-30); Chloride 104 mmol/L (98-107); Estimated CRCL calculation 173 ml/min; Estimated Glomerular Filt Rate > 60; Glucose 315 mg/dL (65-105); Magnesium 2.1 mg/dL (1.6-2.3); Potassium 3.9 mmol/L (3.4-5.0); Sodium 132 mmol/L (137-145)
--- NOTE | 2020-02-07 07:08 | WPDANESPN ---
Anes - Prog Note Post-Op Date/Time: 02/07/20 07:08 Cardiovascular status: normal Respiratory status: normal Airway patency: baseline Mental status: baseline Post-Op hydration status: normal Vital Signs: Last Vital Signs Temp 98.2 F 02/07/20 05:27 Pulse 79 02/07/20 05:27 Resp 14 02/07/20 05:27 BP 117/82 02/07/20 05:27 Pulse Ox 98 02/07/20 05:27 Pain Score (VAS): 04/08 I/O: Intake & Output 02/06/20 02/06/20 02/07/20 15:59 23:59 07:59 Intake Total 1939 2229 800 Balance 19390 800 Laboratory Tests 02/07/20 05:08 02/07/20 05:08 02/06/20 02/06/20 02/06/20 05:30 09:30 11:42 WBC RBC Hgb Hct MCV MCH MCHC RDW Plt Count MPV Sodium Potassium Chloride Carbon Dioxide Anion Gap BUN Creatinine Estim Creat Clear Calc Estimated GFR Glucose POC Capillary Glucose 194 H Calcium Magnesium Vancomycin Trough 6.5 L Blood Type A Positive Antibody Screen Negative 02/06/20 02/06/20 02/06/20 11:53 17:19 20:37 WBC RBC Hgb Hct MCV MCH MCHC RDW Plt Count MPV Sodium Potassium Chloride Carbon Dioxide Anion Gap BUN Creatinine Estim Creat Clear Calc Estimated GFR Glucose POC Capillary Glucose 254 H 328 H 276 H Calcium Magnesium Vancomycin Trough Blood Type Antibody Screen 02/07/20 02/07/20 02/07/20 05:08 05:08 05:27 WBC 13.4 H RBC 3.93 L Hgb 12.7 Hct 37.0 MCV 94.1 MCH 32.3 MCHC 34.3 RDW 12.5 Plt Count 236 MPV 9.6 Sodium 132 L Potassium 3.9 Chloride 104 Carbon Dioxide 23 Anion Gap 5 L BUN 11 D Creatinine 0.40 L Estim Creat Clear Calc 173 Estimated GFR > 60 Glucose 315 H POC Capillary Glucose 284 H Calcium 8.3 L Magnesium 2.1 Vancomycin Trough Blood Type Antibody Screen Microbiology 02/04/20 21:40 Blood Blood Culture - Preliminary 02/05/20 02:46 Abscess Wound Culture - Preliminary 02/04/20 22:16 Blood Blood Culture - Preliminary Post-procedural complaints: none Patient Feedback: Patient satisfied with anesthetic care. Other Findings: 04/08
--- NOTE | 2020-02-07 07:12 | WPDANESPN ---
Anes - Prog Note Post-Op Date/Time: 02/07/20 07:12 Cardiovascular status: normal Respiratory status: normal Airway patency: baseline Mental status: baseline Post-Op hydration status: normal Vital Signs: Last Vital Signs Temp 98.2 F 02/07/20 05:27 Pulse 79 02/07/20 05:27 Resp 14 02/07/20 05:27 BP 117/82 02/07/20 05:27 Pulse Ox 98 02/07/20 05:27 Pain Score (VAS): 04/08 I/O: Intake & Output 02/06/20 02/06/20 02/07/20 15:59 23:59 07:59 Intake Total 19390 800 Balance 0 2230 800 Laboratory Tests 02/07/20 05:08 02/07/20 05:08 02/06/20 02/06/20 02/06/20 05:30 09:30 11:42 WBC RBC Hgb Hct MCV MCH MCHC RDW Plt Count MPV Sodium Potassium Chloride Carbon Dioxide Anion Gap BUN Creatinine Estim Creat Clear Calc Estimated GFR Glucose POC Capillary Glucose 194 H Calcium Magnesium Vancomycin Trough 6.5 L Blood Type A Positive Antibody Screen Negative 02/06/20 02/06/20 02/06/20 11:53 17:19 20:37 WBC RBC Hgb Hct MCV MCH MCHC RDW Plt Count MPV Sodium Potassium Chloride Carbon Dioxide Anion Gap BUN Creatinine Estim Creat Clear Calc Estimated GFR Glucose POC Capillary Glucose 254 H 328 H 276 H Calcium Magnesium Vancomycin Trough Blood Type Antibody Screen 02/07/20 02/07/20 02/07/20 05:08 05:08 05:27 WBC 13.4 H RBC 3.93 L Hgb 12.7 Hct 37.0 MCV 94.1 MCH 32.3 MCHC 34.3 RDW 12.5 Plt Count 236 MPV 9.6 Sodium 132 L Potassium 3.9 Chloride 104 Carbon Dioxide 23 Anion Gap 5 L BUN 11 D Creatinine 0.40 L Estim Creat Clear Calc 173 Estimated GFR > 60 Glucose 315 H POC Capillary Glucose 284 H Calcium 8.3 L Magnesium 2.1 Vancomycin Trough Blood Type Antibody Screen Microbiology 02/04/20 21:40 Blood Blood Culture - Preliminary 02/05/20 02:46 Abscess Wound Culture - Preliminary 02/04/20 22:16 Blood Blood Culture - Preliminary Post-procedural complaints: none Patient Feedback: Patient satisfied with anesthetic care.
[2020-02-07] MEDS: INSULIN GLARGINE (*BKC) 100 UNITS/ML 20 UNITS SUB-Q (08:01)
[2020-02-07] MEDS: ENOXAPARIN 40 MG/0.4 ML SYRINGE SUB-Q (08:04)
[2020-02-07] MEDS: ONDANSETRON INJ 4 MG/2 ML VIAL IV PUSH ×2 (09:10→21:43)
[2020-02-07] MEDS: HYDROcodone/acetaminophen (*CRX) 7.5-325 MG TABLET 1 TAB PO ×2 (09:11→21:44)
[2020-02-07] MEDS: MORPHINE SULFATE (*CRX) 4 MG/ML INJ IV PUSH (10:03)
--- NOTE | 2020-02-07 10:47 | PM.PNGS ---
Progress Note: A&P Assessment and Plan (1) Abdominal wall abscess: Onset Date: ~01/2020 Code(s): L02.211 - Cutaneous abscess of abdominal wall Status: Acute Assessment and Plan: Patient is doing well postop day 1 following excision of necrotic skin and infected subcutaneous tissue lower abdomen. This was mainly on her panniculus. Today we will change the dressing and apply a irrigating wound VAC. Wound was inspected and there is no necrotic tissue remaining in the wound itself. (2) COPD (chronic obstructive pulmonary disease): Code(s): J44.9 - Chronic obstructive pulmonary disease, unspecified Status: Acute (3) Uncontrolled diabetes mellitus: Code(s): E11.65 - Type 2 diabetes mellitus with hyperglycemia Status: Chronic Additional Plan 1. Continue same antibiotics until wound culture back from the ER and these can be adjusted accordingly to cover bacteria present on the culture. 2. Encouraged patient to be up walking in the hallways 3 times a day 3. Carriage patient to work with medicine to try to get her blood sugars controlled over the weekend such that each time they are running between 100 and 150. Time Spent With Patient Time with patient: 25 - 35 minutes Subjective Subjective Date/Time Seen: 02/07/20 10:47 Patient states that her pain is in general better than preop. She has been getting Toradol q.6 hours around the clock and this is controlled her pain since midnight last night. She has not taken a pain pill. They have not had to reinforce surgery resting on the lower abdomen. Her H&H is stable on her labs. Post Op day: 1 Patient reports: feels better Review of Systems Constitutional: Constitutional: Reports no additional constitutional complaints ENT: Reports other (Mucous Membranes moist.) Cardiovascular: Cardiovascular: Denies dyspnea Respiratory: Respiratory: Denies pain on inspiration and Denies dyspnea Gastrointestinal: Comments: Abdominal pain in general is less than still localized to the area of her wound on the lower left abdomen. Musculoskeletal: Musculoskeletal: Reports other (No calf swelling or edema) Integumentary/Breasts: Skin/Breast: Reports system reviewed and no additional complaints, except as docu Exam Const: General: cooperative, no acute distress, alert and awake Orientation/consciousness: patient oriented x3 HENMT: Mouth: Yes moist mucous membranes Neck: Neck: normal visual inspection Chest: Chest palpation & inspection: normal inspection of the chest Resp: Effort & Inspection: normal respiratory effort Auscultation: clear to auscultation bilaterally Cardio: Jugular venous distension: no JVD Rate: regular rate Rhythm: regular rhythm GI: Inspection: other (There is no through drainage on the dressing lower abdomen.) GI Palp: Yes abdominal tenderness (Mild in the vicinity of the wound) and Yes Soft to palpation Auscultation: normal bowel sounds Rectal Exam: deferred Skin: Other: Lower abdominal wound: The previous dressing and packing were removed. Subcutaneous fat is exposed over an area of approximately 16 x 9 x 8 cm. See wound care notes. I helped the wound care nurse apply a irrigating wound VAC patient tolerated this fairly well but had some pain as the suction gallo down on the sponge of the wound VAC. I believe this will improve with time period she received an extra dose of morphine 2 mg IV at the end of the dressing change. Neuro: General: patient oriented x3 and moves all extremities Speech: normal speech Extrem: General: normal exam except as noted Psych: Mental Status: mental status grossly normal Speech and movement: Normal speech and movement present Affect: normal affect Thought content: Yes Normal thought content present Objective Data Vital Signs Vital Signs: Vital Signs - 24 hr 02/06/20 10:50 02/06/20 11:20 02/06/20 12:20 Temperature 36.2 C L 35.9 C L 35.9 C L Pulse Rate 102 H 98 100 Respira
[2020-02-07 11:58] LABS: Glucose Point of Care 348 (65-105)
[2020-02-07 15:00] VITALS: BP 142/77; PULSE 106; RESP 16; TEMP 36.8; O2SAT 97
--- NOTE | 2020-02-07 15:57 | PCCDE ---
Diabetes education f/up: pt has continued on 20 units Lantus daily and moderate dose correction scale ACHS. BG pattern: brft: 194-284, lunch 254-348, supper 328, HS 276 Met with pt and brought CDL Fact sheet from the [employer]. Reassured pt that legally she can drive and take insulin. Discussed the risks of hyperglycemia if does not take appropriate DM medications. Pt sts she was on insulin previously. She did not tell me this the first time I saw her. Apparently when she stopped Metformin 3 years ago that also included insulin. Pt sts she knows how to use insulin pen but I demonstrated anyway. Discussed when to take long acting and rapid acting insulin and how to synchronize rapid acting with meals. Reviewed storage and expiration. Reviewed causes, sx and tx of hypoglycemia. Pt sts she already carries glucose tabs; encouraged her to continue to do so. Regarding diet, pt wanted to review how many carb choices per day. Pt was doing 15 choices per day over 5 small meals/snacks. 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 I recommended 12-15 choices/day and encouraged pt to consume more fruits and vegetables. Pt had been told that fruit had too much sugar and that peas and corn were the worst to eat. She had a package of baked potato chips at the bedside and I was able to show her that an orange (for example) had less carbs, more fiber, less sodium and half the calories of the bag of baked chips. I also explained that while peas and corn have more CHO than other vegetables that does not make them bad. Left CDL Fact sheet at bedside and encouraged pt to call me or the [employer] for assistance prn. Called Dr Khan and encouraged to increase Lantus and add meal time Novolog dosing (weight based dosing of 0.5 units/kg (114.5kg) is 28 units Lantus and 9 units Novolog AC).
[2020-02-07] MEDS: SODIUM CHLORIDE 0.9% IV 1,000 ML 150 ML IV CONT (17:01)
[2020-02-07] MEDS: INSULIN GLARGINE (*BKC) 100 UNITS/ML 10 UNITS SUB-Q (17:45)
[2020-02-07 18:03] LABS: Glucose Point of Care 288 (65-105)
--- NOTE | 2020-02-07 18:13 | PM.IMPN ---
Progress Note: A&P Assessment and Plan (1) Abdominal wall cellulitis: Code(s): L03.311 - Cellulitis of abdominal wall Status: Acute Assessment and Plan: The patient has been admitted to ICU, Electric Container Tester has been consulted. Continue IV antibiotics, Continue local wound care. Pain control as needed. IV hydration. General Surgery has been consulted to evaluate for debridement. 02/07/20 18:13 The patient has been admitted to ICU, Electric Container Tester has been consulted. Continue IV antibiotics, Continue local wound care. Pain control as needed. IV hydration. General Surgery has been consulted to evaluate for debridement. Patient is a 44-year-old female with history of diabetes presented emergency department with a complaint and abscess along abdominal patient was seen by surgery team was taken to OR and had I and D on 02/05, today patient was seen by surgery team and wound VAC was placed, patient complains burning pain along the surgical wound patient denies any fever or chills, patient is being treated with imipenem and vancomycin, wound culture is still pending and 1 of the blood culture bottle is growing gram-negative Staphylococcus will follow-up on sensitivity and further recommendation to follow, patient with uncontrolled diabetes with hemoglobin A1c of 10.4 patient was seen by simulation educator recommending to increase Lantus to 30 units daily and add 5 units with each meal and monitor with sliding scale will continue recommendation (2) Metabolic acidosis: Code(s): E87.2 - Acidosis Status: Acute Assessment and Plan: Secondary to cellulitis and sepsis. Continue IV hydration. Check ABG now. We will consider sodium bicarbonate IV drip for severe acidosis. (3) Sepsis: Code(s): A41.9 - Sepsis, unspecified organism Status: Acute Assessment and Plan: w/ tachycardia and leukocytosis. Source of sepsis appears to be cellulitis. Blood cultures pending. Continue IV antibiotics, Monitor acid-base status. Monitor vital signs and urine output. (4) Uncontrolled diabetes mellitus: Code(s): E11.65 - Type 2 diabetes mellitus with hyperglycemia Status: Chronic Assessment and Plan: HgbA1c was 10.4. Accuchecks, SSI Coverage, Hyopglycemia protocol. (5) Leukocytosis: Qualifiers: Leukocytosis type: unspecified Qualified Code(s): D72.829 - Elevated white blood cell count, unspecified Code(s): D72.829 - Elevated white blood cell count, unspecified Status: Acute Assessment and Plan: Secondary to cellulitis and sepsis. Monitor CBCd. Subjective Date/time seen: 02/07/20 18:13 The patient has been admitted to ICU, Electric Container Tester has been consulted. Continue IV antibiotics, Continue local wound care. Pain control as needed. IV hydration. General Surgery has been consulted to evaluate for debridement. Patient is a 44-year-old female with history of diabetes presented emergency department with a complaint and abscess along abdominal patient was seen by surgery team was taken to OR and had I and D on 02/05, today patient was seen by surgery team and wound VAC was placed, patient complains burning pain along the surgical wound patient denies any fever or chills, patient is being treated with imipenem and vancomycin, wound culture is still pending and 1 of the blood culture bottle is growing gram-negative Staphylococcus will follow-up on sensitivity and further recommendation to follow, patient with uncontrolled diabetes with hemoglobin A1c of 10.4 patient was seen by simulation educator recommending to increase Lantus to 30 units daily and add 5 units with each meal and monitor with sliding scale will continue recommendation Review of Systems Review of Systems: All systems reviewed & are unremarkable except as noted in HPI and below Exam Narrative: Exam Narrative: Morbidly obese with BMI 46 Patient is comfortable, NAD HEENT: eyes are clear and none icteric LUNGS:CTA HEART: R
[2020-02-07 20:39] VITALS: BP 118/66; PULSE 97; RESP 18; TEMP 36.3; O2SAT 99
[2020-02-07] MEDS: SENNA/DOCUSATE SODIUM TABLET 2 TAB PO (21:43)
[2020-02-07 21:48] LABS: Glucose Point of Care 321 (65-105)
[2020-02-07] MEDS: MORPHINE SULFATE (*CRX) 2 MG/ML INJ IV PUSH (23:30)
[2020-02-07 23:34] LABS: Vancomycin Trough 22.3 ug/mL (10.0-20.0)
[2020-02-08] MEDS: ONDANSETRON INJ 4 MG/2 ML VIAL IV PUSH ×3 (03:40→17:39)
[2020-02-08] MEDS: HYDROcodone/acetaminophen (*CRX) 7.5-325 MG TABLET 1 TAB PO (03:41)
[2020-02-08 04:00] VITALS: BP 120/46; PULSE 96; RESP 14; TEMP 35.8; O2SAT 98
[2020-02-08] MEDS: KETOROLAC 30 MG/ML VIAL (*BKC) IV PUSH ×3 (06:36→17:39)
[2020-02-08 06:55] LABS: Hematocrit 36.5 % (37.0-47.0); Hemoglobin 12.5 g/dL (12.0-15.0); Mean Corpuscular HGB Conc 34.2 g/dl (32-36); Mean Corpuscular Hemoglobin 32.2 pg (26-34); Mean Corpuscular Volume 94.1 fl (80-100); Mean Platelet Volume 9.6 fl (7.4-10.4); Platelet Count Result 292 k/mm3 (150-375); Red Blood Count 3.88 M/mm3 (4.2-5.4); Red Cell Distribution Width 12.9 % (11.5-14.5); White Blood Count 10.1 K/mm3 (4.5-10.0)
[2020-02-08 07:10] LABS: Anion Gap 4 mmol/L (8-16); Blood Urea Nitrogen 10 mg/dL (7-17); Carbon Dioxide 24 mmol/L (22-30); Chloride 104 mmol/L (98-107); Estimated CRCL calculation 173 ml/min; Estimated Glomerular Filt Rate > 60; Glucose 263 mg/dL (65-105); Potassium 3.7 mmol/L (3.4-5.0); Sodium 132 mmol/L (137-145)
[2020-02-08] MEDS: INSULIN ASPART (*BKC) 100 UNITS/ML SUB-Q ×6 (08:22→16:34)
[2020-02-08] MEDS: INSULIN GLARGINE (*BKC) 100 UNITS/ML 30 UNITS SUB-Q (08:23)
[2020-02-08] MEDS: ENOXAPARIN 40 MG/0.4 ML SYRINGE SUB-Q (08:25)
[2020-02-08 08:36] LABS: Glucose Point of Care 228 (65-105)
[2020-02-08] MEDS: SODIUM CHLORIDE 0.9% IV 1,000 ML 150 ML IV CONT ×2 (09:10→18:27)
--- NOTE | 2020-02-08 11:45 | PM.IMPN ---
Progress Note: A&P Assessment and Plan (1) Abdominal wall cellulitis: Code(s): L03.311 - Cellulitis of abdominal wall Status: Acute Assessment and Plan: The patient has been admitted to ICU, Home Economics Teacher has been consulted. Continue IV antibiotics, Continue local wound care. Pain control as needed. IV hydration. General Surgery has been consulted to evaluate for debridement. 02/08/20 11:45 The patient has been admitted to ICU, Home Economics Teacher has been consulted. Continue IV antibiotics, Continue local wound care. Pain control as needed. IV hydration. General Surgery has been consulted to evaluate for debridement. Patient is a 44-year-old female with history of diabetes presented emergency department with a complaint and abscess along abdominal patient was seen by surgery team was taken to OR and had I and D on 02/05 patient was seen by surgery team and wound VAC was placed, patient complains burning pain along the surgical wound patient denies any fever or chills, patient is being treated with imipenem and vancomycin, wound culture is still pending and 1 of the blood culture bottle is growing gram-negative Staphylococcus will follow-up on sensitivity and further recommendation to follow, patient with uncontrolled diabetes with hemoglobin A1c of 10.4 patient was seen by telehealth nurse educator recommending to increase Lantus to 30 units daily and add 5 units with each meal and monitor with sliding scale will continue recommendation, today patient blood sugars a close to 200 will continue to monitor (2) Metabolic acidosis: Code(s): E87.2 - Acidosis Status: Acute Assessment and Plan: Secondary to cellulitis and sepsis. Continue IV hydration. Check ABG now. We will consider sodium bicarbonate IV drip for severe acidosis. It is now resolved (3) Sepsis: Code(s): A41.9 - Sepsis, unspecified organism Status: Acute Assessment and Plan: w/ tachycardia and leukocytosis. Source of sepsis appears to be cellulitis. Blood cultures pending. Continue IV antibiotics, Monitor acid-base status. Monitor vital signs and urine output. (4) Uncontrolled diabetes mellitus: Code(s): E11.65 - Type 2 diabetes mellitus with hyperglycemia Status: Chronic Assessment and Plan: HgbA1c was 10.4. Accuchecks, SSI Coverage, Hyopglycemia protocol. (5) Leukocytosis: Qualifiers: Leukocytosis type: unspecified Qualified Code(s): D72.829 - Elevated white blood cell count, unspecified Code(s): D72.829 - Elevated white blood cell count, unspecified Status: Acute Assessment and Plan: Secondary to cellulitis and sepsis. Monitor CBCd. Subjective Date/time seen: 02/08/20 11:45 The patient has been admitted to ICU, Home Economics Teacher has been consulted. Continue IV antibiotics, Continue local wound care. Pain control as needed. IV hydration. General Surgery has been consulted to evaluate for debridement. Patient is a 44-year-old female with history of diabetes presented emergency department with a complaint and abscess along abdominal patient was seen by surgery team was taken to OR and had I and D on 02/05 patient was seen by surgery team and wound VAC was placed, patient complains burning pain along the surgical wound patient denies any fever or chills, patient is being treated with imipenem and vancomycin, wound culture is still pending and 1 of the blood culture bottle is growing gram-negative Staphylococcus will follow-up on sensitivity and further recommendation to follow, patient with uncontrolled diabetes with hemoglobin A1c of 10.4 patient was seen by telehealth nurse educator recommending to increase Lantus to 30 units daily and add 5 units with each meal and monitor with sliding scale will continue recommendation, today patient blood sugars a close to 200 will continue to monitor Review of Systems Review of Systems: All systems reviewed & are unremarkable except as noted in HPI and below Exam Narra
[2020-02-08 12:07] LABS: Glucose Point of Care 280 (65-105)
[2020-02-08 14:00] VITALS: BP 129/60; PULSE 98; RESP 18; TEMP 36.3; O2SAT 100
--- NOTE | 2020-02-08 15:12 | PM.PNGS ---
Progress Note: A&P Assessment and Plan (1) Abdominal wall abscess: Onset Date: ~01/2020 Code(s): L02.211 - Cutaneous abscess of abdominal wall Status: Acute Assessment and Plan: Wound VAC in place and patient is tolerating irrigation. Irrigation not likely necessary after next VAC change. Keep wound VAC in place over the weekend and Dr. Medina reassess wound on Monday. Wound cultures growing mixed austin, likely normal skin austin. Continue current antibiotics and follow closely for any signs of fevers or ongoing infection. (2) COPD (chronic obstructive pulmonary disease): Code(s): J44.9 - Chronic obstructive pulmonary disease, unspecified Status: Acute (3) Uncontrolled diabetes mellitus: Code(s): E11.65 - Type 2 diabetes mellitus with hyperglycemia Status: Chronic Assessment and Plan: Strict glucose control will be paramount to treating infection Time Spent With Patient Time with patient: 25 - 35 minutes Subjective Subjective Date/Time Seen: 02/08/20 15:12 Patient doing well. Mainly complains of burning with the wound vac irrigation. No fevers. Tolerating diet. Exam GI: Other: Wound VAC in place left lower abdomen/suprapubic region. No surrounding skin erythema or necrosis. Drainage from wound VAC mostly serous. Objective Data Vital Signs Vital Signs: Vital Signs - 24 hr 02/07/20 20:39 02/08/20 04:00 02/08/20 14:00 Temperature 36.3 C L 35.8 C L 36.3 C L Pulse Rate 97 96 98 Respiratory Rate 18 14 18 Blood Pressure 118/66 120/46 L 129/60 Pulse Oximetry 99 98 100 Intake/Output Intake/Output: Intake & Output 02/05/20 02/06/20 02/07/20 02/08/20 23:59 23:59 23:59 23:59 Intake Total 4080 5070 5920 1730 Output Total 600 600 375 Balance 3480 5994 2876 1730 Meds/Results Medications: Active Medications Generic Name Dose Route Start Last Admin Trade Name Freq PRN Reason Stop Dose Admin Acetaminophen 500 mg 02/06/20 10:16 Acetaminophen 500 Mg Tablet PO Q6H PRN Mild Pain (1-3) or Fever Hydrocodone Bitart/Acetaminophen 1 tab 02/05/20 14:27 02/05/20 14:45 Hydrocodone/Acetaminophen (*Crx) 5-325 Mg Tablet PO 1 tab Q6H PRN Administration Pain Rated 4-6 Hydrocodone Bitart/Acetaminophen 1 tab 02/06/20 10:16 02/08/20 03:41 Hydrocodone/Acetaminophen (*Crx) 7.5-325 Mg Tablet PO 1 tab Q4H PRN Administration Pain Rated 7-10 Albuterol 2 puff 02/06/20 09:01 Albuterol Sulfate (*Sp) Aerosol 1 Puff INHALATION Q6H PRN Shortness Of Breath Budesonide/Formoterol Fumarate 2 puff 02/05/20 20:00 02/07/20 07:59 Budesonide/Formoterol (*Sp) 160-4.5 Mcg 6 Gm Inh INHALATION Not Given Q12HRT URSULA Dextrose 12.5 gm 02/05/20 00:26 Dextrose 50% 25 Gm/50 Ml Syringe IV PUSH PRN PRN Hypoglycemia Protocol Enoxaparin Sodium 40 mg 02/06/20 09:00 02/08/20 08:25 Enoxaparin 40 Mg/0.4 Ml Syringe SUB-Q 40 mg DAILY URSULA Administration Fentanyl Citrate 25 mcg 02/06/20 07:45 02/06/20 10:13 Fentanyl Citrate Inj (*Crx) 100 Mcg/2 Ml Vial IV PUSH 25 mcg Q2M PRN Administration Pain Glucagon 1 mg 02/05/20 00:26 Glucagon For Inj 1 Mg Vial IM PRN PRN Hypoglycemia Protocol Glucose 15 gm 02/05/20 00:26 Glucose Oral Gel 15 Gm Of Glucse In 37.5 Gm Tube PO PRN PRN Hypoglycemia Protocol Sodium Chloride 1,000 mls @ 150 mls/hr 02/05/20 00:30 02/08/20 09:10 Normal Saline Iv IV CONT 150 mls/hr .Q6H40M URSULA Administration Dextrose 1,000 mls @ 100 mls/hr 02/05/20 00:26 Dextrose 5% 1,000 Ml IVPB PRN PRN Hypoglycemia Protocol Imipenem/Cilastatin Sodium 500 mg in 100 mls @ 300 mls/hr 02/05/20 05:30 02/08/20 12:53 Primaxin 500 Mg/D5w 100 Ml IVPB Infused Q6HR URSULA Infusion Vancomycin HCl 1,500 mg in 500 mls @ 333.333 mls/hr 02/08/20 03:00 02/08/20 12:18 Vancomycin 1,500 Mg/D5w 500 Ml IVPB Infused
[2020-02-08 17:38] LABS: Glucose Point of Care 301 (65-105)
[2020-02-08] MEDS: SENNA/DOCUSATE SODIUM TABLET 2 TAB PO (20:02)
[2020-02-08 22:00] VITALS: BP 108/64; PULSE 86; RESP 21; TEMP 36.1; O2SAT 100
[2020-02-09 00:09] LABS: Glucose Point of Care 258 (65-105)
[2020-02-09 06:00] VITALS: BP 116/62; PULSE 87; RESP 20; TEMP 36.9; O2SAT 99
[2020-02-09 06:29] LABS: Hematocrit 40.3 % (37.0-47.0); Hemoglobin 13.6 g/dL (12.0-15.0); Mean Corpuscular HGB Conc 33.7 g/dl (32-36); Mean Corpuscular Hemoglobin 32.1 pg (26-34); Mean Platelet Volume 9.8 fl (7.4-10.4); Platelet Count Result 279 k/mm3 (150-375); Red Blood Count 4.24 M/mm3 (4.2-5.4); White Blood Count 8.5 K/mm3 (4.5-10.0)
[2020-02-09] MEDS: KETOROLAC 30 MG/ML VIAL (*BKC) IV PUSH ×5 (06:34→23:50)
[2020-02-09 06:46] LABS: Anion Gap 3 mmol/L (8-16); Blood Urea Nitrogen 12 mg/dL (7-17); Calcium 8.5 mg/dL (8.4-10.2); Carbon Dioxide 25 mmol/L (22-30); Chloride 107 mmol/L (98-107); Estimated CRCL calculation 220 ml/min; Estimated Glomerular Filt Rate > 60; Glucose 207 mg/dL (65-105); Potassium 4.2 mmol/L (3.4-5.0); Sodium 135 mmol/L (137-145)
[2020-02-09] MEDS: INSULIN ASPART (*BKC) 100 UNITS/ML SUB-Q ×7 (07:58→22:48)
[2020-02-09 08:00] VITALS: PULSE 87
[2020-02-09] MEDS: INSULIN GLARGINE (*BKC) 100 UNITS/ML 30 UNITS SUB-Q (08:00)
[2020-02-09] MEDS: ENOXAPARIN 40 MG/0.4 ML SYRINGE SUB-Q (08:02)
[2020-02-09 08:40] LABS: Glucose Point of Care 208 (65-105)
[2020-02-09 10:45] LABS: Vancomycin Trough 7.2 ug/mL (10.0-20.0)
[2020-02-09] MEDS: ONDANSETRON INJ 4 MG/2 ML VIAL IV PUSH ×3 (11:56→23:49)
[2020-02-09 12:10] LABS: Glucose Point of Care 274 (65-105)
--- NOTE | 2020-02-09 12:52 | PM.IMPN ---
Progress Note: A&P Assessment and Plan (1) Abdominal wall cellulitis: Code(s): L03.311 - Cellulitis of abdominal wall Status: Acute Assessment and Plan: The patient has been admitted to ICU, Circular Sawyer Helper has been consulted. Continue IV antibiotics, Continue local wound care. Pain control as needed. IV hydration. General Surgery has been consulted to evaluate for debridement. 02/09/20 12:52 The patient has been admitted to ICU, Circular Sawyer Helper has been consulted. Continue IV antibiotics, Continue local wound care. Pain control as needed. IV hydration. General Surgery has been consulted to evaluate for debridement. Patient is a 44-year-old female with history of diabetes presented emergency department with a complaint and abscess along abdominal patient was seen by surgery team was taken to OR and had I and D on 02/05 patient was seen by surgery team and wound VAC was placed, patient had been complaining burning pain along the surgical wound, today patient is sitting up and statst pain is tolerable, patient denies any fever or chills, patient is being treated with imipenem and vancomycin, wound culture is growing mix [place], most likely contamination and 1 of the blood culture bottle is growing gram-negative Staphylococcus will follow-up on sensitivity and further recommendation to follow, patient with uncontrolled diabetes with hemoglobin A1c of 10.4 patient was seen by tape edge machine operator recommended to increase Lantus to 30 units daily and add 5 units with each meal and monitor with sliding scale, patient bloods sugars are close to 200s, will continue recommendation. (2) Metabolic acidosis: Code(s): E87.2 - Acidosis Status: Acute Assessment and Plan: Secondary to cellulitis and sepsis. Continue IV hydration. Check ABG now. We will consider sodium bicarbonate IV drip for severe acidosis. It is now resolved (3) Sepsis: Code(s): A41.9 - Sepsis, unspecified organism Status: Acute Assessment and Plan: w/ tachycardia and leukocytosis. Source of sepsis appears to be cellulitis. Blood cultures pending. Continue IV antibiotics, Monitor acid-base status. Monitor vital signs and urine output. (4) Uncontrolled diabetes mellitus: Code(s): E11.65 - Type 2 diabetes mellitus with hyperglycemia Status: Chronic Assessment and Plan: HgbA1c was 10.4. Accuchecks, SSI Coverage, Hyopglycemia protocol. (5) Leukocytosis: Qualifiers: Leukocytosis type: unspecified Qualified Code(s): D72.829 - Elevated white blood cell count, unspecified Code(s): D72.829 - Elevated white blood cell count, unspecified Status: Acute Assessment and Plan: Secondary to cellulitis and sepsis. Monitor CBCd. Subjective Date/time seen: 02/09/20 12:52 The patient has been admitted to ICU, Circular Sawyer Helper has been consulted. Continue IV antibiotics, Continue local wound care. Pain control as needed. IV hydration. General Surgery has been consulted to evaluate for debridement. Patient is a 44-year-old female with history of diabetes presented emergency department with a complaint and abscess along abdominal patient was seen by surgery team was taken to OR and had I and D on 02/05 patient was seen by surgery team and wound VAC was placed, patient had been complaining burning pain along the surgical wound, today patient is sitting up and statst pain is tolerable, patient denies any fever or chills, patient is being treated with imipenem and vancomycin, wound culture is growing mix [place], most likely contamination and 1 of the blood culture bottle is growing gram-negative Staphylococcus will follow-up on sensitivity and further recommendation to follow, patient with uncontrolled diabetes with hemoglobin A1c of 10.4 patient was seen by tape edge machine operator recommended to increase Lantus to 30 units daily and add 5 units with each meal and monitor with sliding scale, patient bloods sugars are close to 200s, will
--- NOTE | 2020-02-09 13:13 | PM.PNGS ---
Progress Note: A&P Assessment and Plan (1) Abdominal wall abscess: Onset Date: ~01/2020 Code(s): L02.211 - Cutaneous abscess of abdominal wall Status: Acute Assessment and Plan: Wound VAC in place and patient is tolerating irrigation. Irrigation not likely necessary after next VAC change. Keep wound VAC in place over the weekend and Dr. Medina reassess wound on Monday. Wound cultures growing mixed [place]in, likely normal skin austin. Continue current antibiotics and follow closely for any signs of fevers or ongoing infection. (2) COPD (chronic obstructive pulmonary disease): Code(s): J44.9 - Chronic obstructive pulmonary disease, unspecified Status: Acute (3) Uncontrolled diabetes mellitus: Code(s): E11.65 - Type 2 diabetes mellitus with hyperglycemia Status: Chronic Assessment and Plan: Strict glucose control will be paramount to treating infection Subjective Subjective Date/Time Seen: 02/09/20 13:13 Still experiencing burning at times around wound. Seal leaked a little overnight and had to be reinforced. Otherwise doing well. No fevers. Exam GI: Other: Wound VAC in place left lower abdomen/suprapubic region. No surrounding skin erythema or necrosis. Drainage from wound VAC mostly serous. Objective Data Vital Signs Vital Signs: Vital Signs - 24 hr 02/08/20 14:00 02/08/20 22:00 02/09/20 06:00 Temperature 36.3 C L 36.1 C L 36.9 C Pulse Rate 98 86 87 Respiratory Rate 18 21 H 20 Blood Pressure 129/60 108/64 116/62 Pulse Oximetry 100 100 99 02/09/20 08:00 Temperature Pulse Rate 87 Respiratory Rate Blood Pressure Pulse Oximetry Intake/Output Intake/Output: Intake & Output 02/06/20 02/07/20 02/08/20 02/09/20 23:59 23:59 23:59 23:59 Intake Total 5070 5920 4170 1530 Output Total 110 117 6467 1300 Balance 4470 5545 1920 230 Meds/Results Medications: Active Medications Generic Name Dose Route Start Last Admin Trade Name Freq PRN Reason Stop Dose Admin Acetaminophen 500 mg 02/06/20 10:16 Acetaminophen 500 Mg Tablet PO Q6H PRN Mild Pain (1-3) or Fever Hydrocodone Bitart/Acetaminophen 1 tab 02/05/20 14:27 02/05/20 14:45 Hydrocodone/Acetaminophen (*Crx) 5-325 Mg Tablet PO 1 tab Q6H PRN Administration Pain Rated 4-6 Hydrocodone Bitart/Acetaminophen 1 tab 02/06/20 10:16 02/08/20 03:41 Hydrocodone/Acetaminophen (*Crx) 7.5-325 Mg Tablet PO 1 tab Q4H PRN Administration Pain Rated 7-10 Albuterol 2 puff 02/06/20 09:01 Albuterol Sulfate (*Sp) Aerosol 1 Puff INHALATION Q6H PRN Shortness Of Breath Budesonide/Formoterol Fumarate 2 puff 02/05/20 20:00 02/09/20 11:42 Budesonide/Formoterol (*Sp) 160-4.5 Mcg 6 Gm Inh INHALATION Not Given Q12HRT URSULA Dextrose 12.5 gm 02/05/20 00:26 Dextrose 50% 25 Gm/50 Ml Syringe IV PUSH PRN PRN Hypoglycemia Protocol Enoxaparin Sodium 40 mg 02/06/20 09:00 02/09/20 08:02 Enoxaparin 40 Mg/0.4 Ml Syringe SUB-Q 40 mg DAILY URSULA Administration Fentanyl Citrate 25 mcg 02/06/20 07:45 02/06/20 10:13 Fentanyl Citrate Inj (*Crx) 100 Mcg/2 Ml Vial IV PUSH 25 mcg Q2M PRN Administration Pain Glucagon 1 mg 02/05/20 00:26 Glucagon For Inj 1 Mg Vial IM PRN PRN Hypoglycemia Protocol Glucose 15 gm 02/05/20 00:26 Glucose Oral Gel 15 Gm Of Glucse In 37.5 Gm Tube PO PRN PRN Hypoglycemia Protocol Sodium Chloride 1,000 mls @ 150 mls/hr 02/05/20 00:30 02/09/20 10:49 Normal Saline Iv IV CONT 150 mls/hr .Q6H40M URSULA Infusion Dextrose 1,000 mls @ 100 mls/hr 02/05/20 00:26 Dextrose 5% 1,000 Ml IVPB PRN PRN Hypoglycemia Protocol Imipenem/Cilastatin Sodium 500 mg in 100 mls @ 300 mls/hr 02/05/20 05:30 02/09/20 05:33 Primaxin 500 Mg/D5w 100 Ml IVPB Not Given Q6HR URSULA Vancomycin HCl 1,500 mg in 500 mls @ 333.333 mls/hr 02/08/20 03:00 12
[2020-02-09 14:00] VITALS: BP 116/64; PULSE 86; RESP 18; TEMP 36.3; O2SAT 100
[2020-02-09] MEDS: HYDROcodone/acetaminophen (*CRX) 5-325 MG TABLET 1 TAB PO (14:25)
[2020-02-09 17:02] LABS: Glucose Point of Care 311 (65-105)
[2020-02-09 19:58] VITALS: BP 154/71; PULSE 87; RESP 14; TEMP 36.5; O2SAT 98
[2020-02-09] MEDS: SENNA/DOCUSATE SODIUM TABLET 2 TAB PO (20:00)
[2020-02-09] MEDS: HYDROcodone/acetaminophen (*CRX) 7.5-325 MG TABLET 1 TAB PO (21:41)
[2020-02-09 22:02] LABS: Glucose Point of Care 337 (65-105)
[2020-02-10] MEDS: SODIUM CHLORIDE 0.9% IV 1,000 ML 150 ML IV CONT ×2 (00:11→08:50)
[2020-02-10 05:15] VITALS: BP 115/71; PULSE 96; RESP 18; TEMP 36.7; O2SAT 100
[2020-02-10] MEDS: KETOROLAC 30 MG/ML VIAL (*BKC) IV PUSH ×2 (05:25→11:41)
[2020-02-10] MEDS: ONDANSETRON INJ 4 MG/2 ML VIAL IV PUSH ×2 (05:25→11:50)
[2020-02-10 06:14] LABS: Hematocrit 40.2 % (37.0-47.0); Hemoglobin 13.4 g/dL (12.0-15.0); Mean Corpuscular HGB Conc 33.3 g/dl (32-36); Mean Corpuscular Hemoglobin 31.8 pg (26-34); Mean Corpuscular Volume 95.3 fl (80-100); Mean Platelet Volume 9.7 fl (7.4-10.4); Platelet Count Result 348 k/mm3 (150-375); Red Blood Count 4.22 M/mm3 (4.2-5.4)
[2020-02-10 06:27] LABS: Anion Gap 7 mmol/L (8-16); Blood Urea Nitrogen 15 mg/dL (7-17); Calcium 8.9 mg/dL (8.4-10.2); Carbon Dioxide 25 mmol/L (22-30); Chloride 104 mmol/L (98-107); Estimated CRCL calculation 135 ml/min; Estimated Glomerular Filt Rate > 60; Glucose 295 mg/dL (65-105); Potassium 4.3 mmol/L (3.4-5.0); Sodium 136 mmol/L (137-145)
[2020-02-10 07:08] LABS: Glucose Point of Care 237 (65-105)
[2020-02-10] MEDS: INSULIN ASPART (*BKC) 100 UNITS/ML SUB-Q ×6 (08:36→18:12)
[2020-02-10] MEDS: INSULIN GLARGINE (*BKC) 100 UNITS/ML 30 UNITS SUB-Q (08:36)
[2020-02-10] MEDS: ENOXAPARIN 40 MG/0.4 ML SYRINGE SUB-Q (08:38)
[2020-02-10] MEDS: HYDROcodone/acetaminophen (*CRX) 5-325 MG TABLET 1 TAB PO (08:49)
--- NOTE | 2020-02-10 12:54 | PM.PNGS ---
Progress Note: A&P Assessment and Plan (1) Abdominal wall abscess: Onset Date: ~01/2020 Code(s): L02.211 - Cutaneous abscess of abdominal wall Status: Acute Assessment and Plan: Wound VAC changed today and the wound appears clean enough to change to normal wound VAC therapy, rather than the irrigating wound VAC. Okay to discharge patient home from a surgical standpoint when okay with other services. Plan to continue wound VAC dressing changes on discharge with home health. Follow-up with Dr. Medina next week in the wound clinic. (2) COPD (chronic obstructive pulmonary disease): Code(s): J44.9 - Chronic obstructive pulmonary disease, unspecified Status: Acute (3) Uncontrolled diabetes mellitus: Code(s): E11.65 - Type 2 diabetes mellitus with hyperglycemia Status: Chronic Assessment and Plan: Strict glucose control will be paramount to treating infection and for wound healing. Additional Plan Discussed the plan of care with Dr. Medina. Subjective Subjective Date/Time Seen: 02/10/20 12:00 Post Op day: 4 Patient reports: no new complaints Interval history: Patient seen with wound clinic nurses. She has no specific complaints today. She reports that the wound VAC was painful intermittently and that she thought it was during irrigation. No other complaints at this time. Review of Systems Review of Systems: All systems reviewed & are unremarkable except as noted in HPI and below Constitutional: Constitutional: Denies chills and Denies fever(s) Exam Const: General: no acute distress, alert and awake Orientation/consciousness: patient oriented x3 GI: Inspection: Pannus present and obesity GI Palp: Yes Soft to palpation and Yes Tenderness to palpation present (GI) (tender at wound) Other: Wound VAC clean and intact in the left lower abdomen/suprapubic region. No surrounding skin erythema or necrosis. Drainage from wound VAC serous. Skin: Other: Lower abdominal wound: Irrigating wound VAC dressing removed. See wound care note for measurements of wound. There is pink granulation tissue noted in over half of the wound bed, subcutaneous fat exposed. No necrotic tissue remaining or purulent drainage or pockets noted on my exam. New wound VAC dressing applied. Neuro: General: moves all extremities and no focal motor deficits Extrem: General: no clubbing, cyanosis or edema and no calf tenderness Psych: Appearance: grossly normal Mental Status: mental status grossly normal Insight: Good insight present (Psych) Judgement: Good judgement present (Psych) Objective Data Vital Signs Vital Signs: Vital Signs - 24 hr 02/09/20 14:00 02/09/20 19:58 02/10/20 05:15 Temperature 97.4 F L 97.7 F 98.1 F Pulse Rate 86 87 96 Respiratory Rate 18 14 18 Blood Pressure 116/64 154/71 H 115/71 Pulse Oximetry 100 98 100 Intake/Output Intake/Output: Intake & Output 02/07/20 02/08/20 02/09/20 02/10/20 23:59 23:59 23:59 23:59 Intake Total 5920 4170 3260 3680 Output Total 375 2250 3400 800 Balance 5545 1920 -140 2880 Meds/Results Medications: Active Medications Generic Name Dose Route Start Last Admin Trade Name Freq PRN Reason Stop Dose Admin Acetaminophen 500 mg 02/06/20 10:16 Acetaminophen 500 Mg Tablet PO Q6H PRN Mild Pain (1-3) or Fever Hydrocodone Bitart/Acetaminophen 1 tab 02/05/20 14:27 02/10/20 08:49 Hydrocodone/Acetaminophen (*Crx) 5-325 Mg Tablet PO 1 tab Q6H PRN Administration Pain Rated 4-6 Hydrocodone Bitart/Acetaminophen 1 tab 02/06/20 10:16 02/09/20 21:41 Hydrocodone/Acetaminophen (*Crx) 7.5-325 Mg Tablet PO 1 tab Q4H PRN Administration Pain Rated 7-10 Albuterol 2 puff 02/06/20 09:01 Albuterol Sulfate (*Sp) Aerosol 1 Puff INHALATION Q6H PRN Shortness Of Breath Budesonide/Formoterol Fumarate 2 puff 02/05/20 20:00 02/09/20 11:42 Budesonide/Formoterol (*Sp) 160-4.5 Mcg 6 Gm Inh INHALA
[2020-02-10 12:57] LABS: Glucose Point of Care 235 (65-105)
[2020-02-10] MEDS: HYDROcodone/acetaminophen (*CRX) 7.5-325 MG TABLET 1 TAB PO ×2 (13:26→21:42)
[2020-02-10 14:00] VITALS: BP 138/73; PULSE 92; RESP 18; TEMP 35.8; O2SAT 100
[2020-02-10 17:10] LABS: Glucose Point of Care 229 (65-105)
--- NOTE | 2020-02-10 17:12 | PM.IMPN ---
Progress Note: A&P Assessment and Plan (1) Abdominal wall cellulitis: Code(s): L03.311 - Cellulitis of abdominal wall Status: Acute Assessment and Plan: The patient has been admitted to ICU, V Belt Skiver has been consulted. Continue IV antibiotics, Continue local wound care. Pain control as needed. IV hydration. General Surgery has been consulted to evaluate for debridement. 02/10/20 17:12 The patient has been admitted to ICU, V Belt Skiver has been consulted. Continue IV antibiotics, Continue local wound care. Pain control as needed. IV hydration. General Surgery has been consulted to evaluate for debridement. Patient is a 44-year-old female with history of diabetes presented emergency department with a complaint and abscess along abdominal patient was seen by surgery team was taken to OR and had I and D on 02/05 patient was seen by surgery team and wound VAC was placed, patient had been complaining burning pain along the surgical wound, today patient is sitting up and stats pain is tolerable, patient denies any fever or chills, patient is being treated with imipenem and vancomycin, wound culture is growing mix [place], most likely contamination and 1 of the blood culture bottle is growing gram-negative Staphylococcus, its not MRSA will consult Dr. Giles for further recommendations, patient seen by surgery team today and can be discharged home and follow-up as outpatient, patient with uncontrolled diabetes with hemoglobin A1c of 10.4 patient was seen by chemical educator recommended to increase Lantus to 30 units daily and add 5 units with each meal and monitor with sliding scale, patient bloods sugars are close to 200s, will continue recommendation. (2) Metabolic acidosis: Code(s): E87.2 - Acidosis Status: Acute Assessment and Plan: Secondary to cellulitis and sepsis. Continue IV hydration. Check ABG now. We will consider sodium bicarbonate IV drip for severe acidosis. It is now resolved (3) Sepsis: Code(s): A41.9 - Sepsis, unspecified organism Status: Acute Assessment and Plan: w/ tachycardia and leukocytosis. Source of sepsis appears to be cellulitis. Blood cultures pending. Continue IV antibiotics, Monitor acid-base status. Monitor vital signs and urine output. (4) Uncontrolled diabetes mellitus: Code(s): E11.65 - Type 2 diabetes mellitus with hyperglycemia Status: Chronic Assessment and Plan: HgbA1c was 10.4. Accuchecks, SSI Coverage, Hyopglycemia protocol. (5) Leukocytosis: Qualifiers: Leukocytosis type: unspecified Qualified Code(s): D72.829 - Elevated white blood cell count, unspecified Code(s): D72.829 - Elevated white blood cell count, unspecified Status: Acute Assessment and Plan: Secondary to cellulitis and sepsis. Monitor CBCd. Subjective Date/time seen: 02/10/20 17:12 The patient has been admitted to ICU, V Belt Skiver has been consulted. Continue IV antibiotics, Continue local wound care. Pain control as needed. IV hydration. General Surgery has been consulted to evaluate for debridement. Patient is a 44-year-old female with history of diabetes presented emergency department with a complaint and abscess along abdominal patient was seen by surgery team was taken to OR and had I and D on 02/05 patient was seen by surgery team and wound VAC was placed, patient had been complaining burning pain along the surgical wound, today patient is sitting up and stats pain is tolerable, patient denies any fever or chills, patient is being treated with imipenem and vancomycin, wound culture is growing mix [place], most likely contamination and 1 of the blood culture bottle is growing gram-negative Staphylococcus, its not MRSA will consult Dr. Giles for further recommendations, patient seen by surgery team today and can be discharged home and follow-up as outpatient, patient with uncontrolled diabetes with hemoglobin A1c of 10.4 patient was
[2020-02-10] MEDS: IBUPROFEN 600 MG TABLET PO ×2 (18:10→23:23)
[2020-02-10 20:07] LABS: Glucose Point of Care 242 (65-105)
[2020-02-10 20:13] VITALS: BP 132/34; PULSE 91; RESP 14; TEMP 37.1; O2SAT 97
[2020-02-10] MEDS: FAMOTIDINE 20 MG TABLET PO (20:15)
[2020-02-10] MEDS: SENNA/DOCUSATE SODIUM TABLET 2 TAB PO (20:15)
[2020-02-11] MEDS: HYDROcodone/acetaminophen (*CRX) 5-325 MG TABLET 1 TAB PO ×2 (03:22→11:46)
[2020-02-11] MEDS: IBUPROFEN 600 MG TABLET PO (05:40)
[2020-02-11 05:53] VITALS: BP 143/62; PULSE 87; RESP 14; TEMP 36.3; O2SAT 99
[2020-02-11 06:10] LABS: Hematocrit 36.9 % (37.0-47.0); Hemoglobin 12.2 g/dL (12.0-15.0); Mean Corpuscular HGB Conc 33.1 g/dl (32-36); Mean Corpuscular Hemoglobin 31.6 pg (26-34); Mean Corpuscular Volume 95.6 fl (80-100); Mean Platelet Volume 9.1 fl (7.4-10.4); Platelet Count Result 355 k/mm3 (150-375); Red Blood Count 3.86 M/mm3 (4.2-5.4); Red Cell Distribution Width 13.2 % (11.5-14.5); White Blood Count 10.4 K/mm3 (4.5-10.0)
[2020-02-11 06:26] LABS: Anion Gap 3 mmol/L (8-16); Blood Urea Nitrogen 10 mg/dL (7-17); Calcium 8.4 mg/dL (8.4-10.2); Carbon Dioxide 28 mmol/L (22-30); Chloride 104 mmol/L (98-107); Estimated CRCL calculation 164 ml/min; Estimated Glomerular Filt Rate > 60; Glucose 233 mg/dL (65-105); Potassium 4.3 mmol/L (3.4-5.0); Sodium 135 mmol/L (137-145)
[2020-02-11] MEDS: ONDANSETRON INJ 4 MG/2 ML VIAL IV PUSH (06:36)
[2020-02-11 06:46] LABS: Glucose Point of Care 218 (65-105)
[2020-02-11] MEDS: ENOXAPARIN 40 MG/0.4 ML SYRINGE SUB-Q (08:54)
[2020-02-11] MEDS: INSULIN GLARGINE (*BKC) 100 UNITS/ML 30 UNITS SUB-Q (08:54)
[2020-02-11] MEDS: FAMOTIDINE 20 MG TABLET PO (08:54)
[2020-02-11] MEDS: INSULIN ASPART (*BKC) 100 UNITS/ML SUB-Q ×3 (08:56→11:48)
--- NOTE | 2020-02-11 11:37 | PM.DS ---
DS: Admitting Diagnosis Admitting Diagnosis Admitting Diagnosis: Abdominal wall abscess. DS: Discharge Diagnosis Discharge Diagnosis (1) Abdominal wall abscess: Onset Date: ~01/2020 Code(s): L02.211 - Cutaneous abscess of abdominal wall Status: Acute (2) Uncontrolled diabetes mellitus: Code(s): E11.65 - Type 2 diabetes mellitus with hyperglycemia Status: Chronic (3) Degenerative joint disease of left hip: Qualifiers: Osteoarthritis type: primary Qualified Code(s): M16.12 - Unilateral primary osteoarthritis, left hip Code(s): M16.12 - Unilateral primary osteoarthritis, left hip Status: Acute (4) COPD (chronic obstructive pulmonary disease): Code(s): J44.9 - Chronic obstructive pulmonary disease, unspecified Status: Acute DS: Summary Hospital Course Reason for hospitalization: Abdominal pain Hospital Course: This is a 44-year-old diabetic female who presented to the hospital with lower abdominal wall infection. She describes that this started out as a small boil this past Monday and very quickly worsened. Since then her infection has become a lot larger and has ulcerated and is draining if foul smelling discharge. She had an black necrotic area in the center of her wound. The patient denied any previous history of MRSA. she had no fever, chills, chest pain, shortness of breath, cough, palpitations, dysuria, hematuria, diarrhea, rectal bleeding, or lower extremity swelling. She also had abdominal discomfort around her wound. The patient was evaluated emergency room and she was found to be septic with an elevated white blood cell count of 14,800 and tachycardia. Patient was started on vancomycin IV and imipenem. Routine labs also demonstrated metabolic acidosis although the patient did not have an elevated anion gap. ER provider had consulted general surgery for possible wound debridement. She has also consulted our edge grinder machine, Dr. Portillo. The patient had no other complaints. Patient then was seen by surgery and taken to OR for sharp debridement of the abscess/wound. Patient did well in the post op period.She required wound vac going home and follow up with surgery in the outpatient setting. [place] [address] [place] [id number] Scan Report Signed Patient: Nat Chavarria : 1975#: [id number] Age/Sex: 44 / FAcct:[id number] Loc: [facility] ADM Date: 02/04/[address]: Ordering Physician: Cathy Mackey MD Date of Service: 02/04/20 Procedure(s): CT abdomen pelvis w con Accession Number(s): [id number] cc: Cathy Mackey MD; DIP FILLER PHYSICIAN~ EXAMINATION: CT abdomen pelvis w con INDICATION: Lower abdominal abscess TECHNIQUE: Computed tomographic images of the abdomen and pelvis were obtained after the administration of 100 cc of Omnipaque 350 intravenous contrast. The dose-length product (DLP) was 1515.68 mGy-cm. Automated exposure control and iterative reconstruction technique were employed. COMPARISON: 01/29/2018 FINDINGS: The lung bases are clear. The heart size is normal. The liver is diffusely low in attenuation when compared with the spleen, consistent with hepatic steatosis. There is a stable 1.7 cm subcapsular enhancing lesion of the left hepatic lobe, likely a flash filling hemangioma or possibly a hepatic adenoma. The spleen, pancreas, and adrenal glands are normal. The gallbladder is surgically absent. There is a 3 mm nonobstructing stone of the right kidney upper pole. An adjacent area of chronic cortical scarring is noted in the right kidney. There is a 10 mm cyst of the right kidney. The left kidney is unremarkable. No pathologically enlarged abdominal or pelvic lymph nodes are identified. There is a moderate volume of colonic stool. There is no free intraperitoneal gas or evidence of bowel obstruction. The appendix is normal. There is a 3.1 x 1.6 cm abscess with surr
--- NOTE | 2020-02-11 11:52 | PM.PNGS ---
Progress Note: A&P Assessment and Plan (1) Abdominal wall abscess: Onset Date: ~01/2020 Code(s): L02.211 - Cutaneous abscess of abdominal wall Status: Acute Assessment and Plan: Wound VAC tubing and suction unit changed out to what she will use at home today. Okay to discharge patient home from a surgical standpoint when okay with other services. Plan to continue wound VAC dressing changes on discharge with home health. Follow-up with Dr. Medina next week in the wound clinic. (2) COPD (chronic obstructive pulmonary disease): Code(s): J44.9 - Chronic obstructive pulmonary disease, unspecified Status: Acute (3) Uncontrolled diabetes mellitus: Code(s): E11.65 - Type 2 diabetes mellitus with hyperglycemia Status: Chronic Assessment and Plan: Strict glucose control will be paramount to treating infection and for wound healing. Additional Plan Discussed the plan of care with pt's nurse Subjective Subjective Date/Time Seen: 02/11/20 11:52 Post Op day: 5 Patient reports: no new complaints Interval history: Patient is excited about being able to go home. She is willing to work with home health to continue wound VAC therapy at home. My office has confirmed orders for home health and wound VAC management. We will see the patient as an outpatient in the wound clinic next week. Patient denies much pain today. She is tolerating pain well with the change in medications done last night. Review of Systems Review of Systems: All systems reviewed & are unremarkable except as noted in HPI and below Constitutional: Constitutional: Reports as per HPI, Reports no additional constitutional complaints, Denies chills, Denies excessive sweating, Denies fatigue, Denies fever(s), Denies headache(s) and Denies weakness Eyes: Eyes: Denies change in vision and Denies loss of vision ENT: Denies dizziness, Denies headache(s) and Reports other (Mucous Membranes moist.) Cardiovascular: Cardiovascular: Denies chest pain, Denies syncope, Denies leg edema, Denies lightheadedness, Denies radiating jaw, neck or arm pain and Denies dyspnea Respiratory: Respiratory: Denies cough, Denies pain on inspiration, Denies dyspnea and Denies wheezing Gastrointestinal: Gastrointestinal: Reports as per HPI and Reports abdominal pain Musculoskeletal: Musculoskeletal: Denies deformity, Denies joint swelling, Denies radiating pain into limb, Denies tingling and Reports other (No calf swelling or edema) Integumentary/Breasts: Skin/Breast: Reports system reviewed and no additional complaints, except as docu, Denies pruritus, Denies wounds and Denies jaundice Neurologic: Denies dizziness, Denies syncope, Denies headache(s), Denies loss of vision, Denies tingling, Denies tremor(s) and Denies weakness Psychiatric: Psychiatric: Denies anxiety and Denies depression Endocrine: Endocrine: Denies cold intolerance, Denies excessive sweating, Denies fatigue and Denies heat intolerance Hematologic/Lymphatic: Hematologic/Lymphatic: Denies easy bleeding and Denies easy bruising Allergic/Immunologic: Allergic/Immunologic: Denies wheezing Exam Const: General: cooperative, comfortable, no acute distress, alert and awake Nutritional Appearance: obese Orientation/consciousness: patient oriented x3 Limitations: no limitations HENMT: Head: normal to inspection, normocephalic and atraumatic Ears: hearing grossly normal bilaterally and external ears normal General nose exam: Normal external nose present Mouth: Yes Normal oral and palatal mucosa present and Yes moist mucous membranes Eyes: General: appearance normal, both eyes and all related structures Sclera: sclerae normal Pupils: Equal, round and reactive pupils present EOM: EOMs intact bilaterally Neck: Neck: normal visual inspection and full ROM Chest: Chest palpation & inspection: normal inspection of the chest Resp: Effort & Inspection: normal respiratory effort, a
[2020-02-11 13:06] LABS: Glucose Point of Care 170 (65-105)
--- NOTE | 2020-02-11 15:56 | PC.NURSE ---
Discussed with the patient the importance of checking blood sugar before meals and at bedtime. Instructions on appropriate blood sugar levels explained as well. Pt verbalizes understanding.
== END 2020-02-11 15:20 | disposition home health service (06) | DRG 854 ==
LOC: ANHED 20:58 → ANHICU 02-05 01:55 → ANH3MED 02-10 00:38 → ANHICU 02-14 12:35
PROVIDERS: Family Medicine; Surgery; Admitting Provider Family Medicine; Emergency Provider General Practice; Visit Provider Internal Medicine
PROC: 0JB80ZZ Excision of Abdomen Subcutaneous Tissue and Fascia, Open Approach (ICD-10-PCS; principal; 2020-02-06 08:30)
DX: A41.9 Sepsis, unspecified organism (principal); L02.211 Cutaneous abscess of abdominal wall; E87.2 Acidosis; L03.311 Cellulitis of abdominal wall; Z68.42 Body mass index [BMI] 45.0-49.9, adult; E66.01 Morbid (severe) obesity due to excess calories; E11.65 Type 2 diabetes mellitus with hyperglycemia; M16.12 Unilateral primary osteoarthritis, left hip; J44.9 Chronic obstructive pulmonary disease, unspecified; F17.210 Nicotine dependence, cigarettes, uncomplicated; Z79.899 Other long term (current) drug therapy
CPT/HCPCS: 10061; 36415; 36600; 74177; 80048; 80053; 80202; 81001; 81025; 82010; 82565; 82803; 82805; 83036; 83605; 83735; 84100; 85025; 85027; 85610; 85730; 86140; 86850; 86900; 86901; 87040; 87070; 87077; 87186; 87205; 88304; 88305; 93005; 96361; 96365; 96366; 96367; 96375; 99285; A9270; G0378; J0743; J1100; J1650; J1815; J1885; J2270; J2405; J2704; J3010; J3370; J3475; J7030; J7120; Q9967

== ENCOUNTER 2020-02-13 16:49 | Emergency (ER) | payer OTHER, SELFPAY ==
--- NOTE | ~2020-02-13 | XR_ITS ---
EXAMINATION: XR chest 2V EXAM DATE: 02/13/2020 17:30 INDICATION: Lower extremity edema. History COPD. Diabetes. TECHNIQUE: Frontal and lateral projections of the chest obtained and reviewed. Comparison is made to prior examination from 11/07/2015. FINDINGS: The lungs are clear. There are no pleural effusions. The cardiomediastinal silhouette is within normal limits. There is no pneumothorax suspected. The bones and soft tissues are unremarkab le. IMPRESSION: Normal chest x-ray exam. Reviewed, dictated and finalized at location A. K OPERATOR IMPRESSION: Normal chest x-ray exam.
--- NOTE | ~2020-02-13 | US_ITS ---
EXAMINATION: US venous doppler LE BI EXAM DATE: 02/13/2020 17:58 INDICATION: LE edema, recent surgery/hospitalization. Swelling. TECHNIQUE: Multiple grayscale, color flow and Doppler images of the lower extremity deep venous syste ms bilaterally were obtained and reviewed. Comparison is made to prior examination from 10/13/2016. FINDINGS: Right side: The right common femoral, femoral and profunda veins demonstrate normal color flow, respi ratory variation, augmentation and compressibility. Compressibility, color flow confirmed within the right popliteal, posterior tibial, peroneal, and greater saphenous veins. Left side: The left common femoral, femoral and profunda veins demonstrate normal color flow, respira tory variation, augmentation and compressibility. Compressibility, color flow confirmed within the l eft popliteal, posterior tibial, peroneal, and greater saphenous veins. Resolution of previously see n left-sided DVT. IMPRESSION: 1. No lower extremity deep venous thrombosis bilaterally. Reviewed, dictated and finalized at location A. ER ATTACHER
[2020-02-13 16:56] VITALS: BP 169/92; PULSE 100; RESP 18; TEMP 36.7; O2SAT 99
--- NOTE | 2020-02-13 17:16 | ED.EXTPRO ---
HPI - Extremity Problem General Chief complaint: Extremity Problem,Nontraumatic Stated complaint: LOWER EXT SWELLING Time Seen by Provider: 02/13/20 17:02 Source: patient Mode of arrival: wheelchair Limitations: no limitations History of Present Illness HPI Narrative: This is a 44 year old female that presents to the ER for lower extremity edema noted last night. Reports she was recently admitted for an abdominal wound. Has a wound vac that was changed by home health yesterday. No issues with the wound, reports decreasing output from the drain since discharge. Reports last night she started to note swelling in her bilateral lower extremities. Reports she chronically has some swelling in the left lower extremity, but not usually in the right. She called her primary who sent her to the ER for evaluation of possible blood clot. Denies fever, chest pain or shortness of breath. Related Data Home Medications Medication Instructions Recorded Confirmed meloxicam 7.5 mg tablet 7.5 mg PO DAILY PRN 08/22/19 02/05/20 albuterol sulfate [Ventolin HFA] 2 puff INHALATION Q6H PRN 02/05/20 02/05/20 Allergies Allergy/AdvReac Type Severity Reaction Status Date / Time No Known Allergies Allergy Unknown Verified 02/13/20 17:00 Review of Systems Review of Systems: Narrative: CONSTITUTIONAL: Denies fever CARDIOVASCULAR: Reports edema. Denies chest pain RESPIRATORY: Denies dyspnea. SKIN: Reports wound All systems reviewed & are unremarkable except as noted in HPI and below PMFSH Past Medical History Medical History Actinic keratosis Contusion of finger of right hand Degenerative joint disease of left hip History of basal cell carcinoma (BCC) Lateral epicondylitis of right elbow Left hip pain Skin cancer screening Trochanteric bursitis, left hip Type 2 diabetes mellitus Surgical History Surgical History H/O tubal ligation History of delivery x 1 History of knee surgery Hx of cholecystectomy laparoscopic Family History Family History Other Diabetes mellitus Family history of alcoholism Family history of arthritis Family history of malignant neoplasm Family history of mental disorder Social History Social History Smoking packs per day: 0.5 Smoking cigarettes per day: 10.0 Years smoked: 30 Smoking pack-years: 15.00 Smoking status: Current every day smoker Tobacco type: cigarettes Alcohol intake: former Substance use: never Gender identity (if verbalized by the patient): Female Spiritual care concerns: No Exam Narrative: Exam Narrative: GENERAL: Well-appearing, obese, and in no acute distress. HEAD: Normocephalic, atraumatic. EYES: EOMI. CHEST: Clear to auscultation. No respiratory distress. No wheezes rales or rhonchi HEART: Regular rate and rhythm. No murmur heard. Normal peripheral pulses. ABDOMEN: Soft, nontender, nondistended, normal active bowel sounds. Wound VAC present to the lower abdominal wall, without surrounding erythema EXTREMITIES: Normal range of motion. Non-pitting edema to the bilateral lower extremities SKIN: Warm, dry, no rash. NEURO: No focal deficits. Alert and oriented x3. PSYCH: Normal mood and affect Course Vital Signs Vital signs: Vital Signs Temperature 98.0 F 02/13/20 16:56 Pulse Rate 100 02/13/20 16:56 Respiratory Rate 18 02/13/20 16:56 Blood Pressure 169/92 H 02/13/20 16:56 Pulse Oximetry 99 02/13/20 16:56 Temperature 98.0 F 02/13/20 16:56 Pulse Rate 100 02/13/20 16:56 Respiratory Rate 18 02/13/20 16:56 Blood Pressure 169/92 H 02/13/20 16:56 Pulse Oximetry 99 02/13/20 16:56 MDM - Extremity (Nontraumatic) MDM Narrative Medical decision making narrative: Patient presents to the emergency department for [facility]
[2020-02-13 18:17] LABS: Basophils Percent Auto 0.3 % (0.2-1.2); Eosinophils Absolute Auto 0.3 K/mm3 (0-0.3); Eosinophils Percent Auto 2.5 % (0-4.4); Hematocrit 39.7 % (37.0-47.0); Hemoglobin 13.1 g/dL (12.0-15.0); Immature Granulocyte Absolute 0.08 K/mm3 (0.00-0.031); Immature Granulocyte Percent A 0.8 % (0-0.5); Lymphocytes Absolute Auto 3.71 K/mm3 (0.9-3.2); Lymphocytes Percent Auto 36.4 % (18.3-44.2); Mean Corpuscular Hemoglobin 32.5 pg (26-34); Mean Corpuscular Volume 98.5 fl (80-100); Mean Platelet Volume 9.2 fl (7.4-10.4); Monocytes Percent Auto 10.1 % (2.6-8.5); Neutrophils Absolute Auto 5.1 K/mm3 (1.3-6.7); Neutrophils Percent Auto 49.9 % (45.5-73.1); Platelet Count Result 475 k/mm3 (150-375); Red Blood Count 4.03 M/mm3 (4.2-5.4); Red Cell Distribution Width 13.2 % (11.5-14.5); White Blood Count 10.2 K/mm3 (4.5-10.0)
[2020-02-13 18:29] LABS: Anion Gap 5 mmol/L (8-16); Blood Urea Nitrogen 13 mg/dL (7-17); Carbon Dioxide 34 mmol/L (22-30); Chloride 100 mmol/L (98-107); Estimated CRCL calculation 143 ml/min; Estimated Glomerular Filt Rate > 60; Glucose 172 mg/dL (65-105); Potassium 3.7 mmol/L (3.4-5.0); Sodium 139 mmol/L (137-145)
[2020-02-13 18:38] LABS: NT Pro B Type Natriuretic Pept 356 PG/ML (5-100)
[2020-02-13 19:37] VITALS: BP 152/77; PULSE 88; RESP 20; TEMP 36.8; O2SAT 100
== END 2020-02-13 19:39 | disposition home or self-care (01) ==
PROVIDERS: Physician Assistant; Emergency Provider Emergency Medicine; PCP Family Medicine
DX: R60.0 Localized edema (principal); M16.12 Unilateral primary osteoarthritis, left hip; Z85.828 Personal history of other malignant neoplasm of skin; E11.9 Type 2 diabetes mellitus without complications; F17.210 Nicotine dependence, cigarettes, uncomplicated
CPT/HCPCS: 36415; 71046; 80048; 83880; 85025; 93970; 99284

== ENCOUNTER 2020-05-01 07:48 | Outpatient (RCR) | payer OTHER, SELFPAY ==
--- NOTE | 2020-02-18 15:10 | PCWOUND ---
WOCN NOTE spoke to Elli home nurse for patient [phone],, [facility] visiting nurses office number [phone]. educated on proper way to apply wound vac dressing. offered to teach application if needed to nurse. requested the same nurse follow with patient when possible to minimize problems with vac application. Elli stated understanding and stated she will follow patient.
--- NOTE | 2020-02-18 16:00 | WPDWOUNDNOTE ---
Wound Care Note Date/Time: 02/18/20 16:00 History: This patient is a 44 y/o W female who was admitted to ICU in early 2019 with a worsening abscess on her left lower abdomen that started as a blister. Her diabetes was severely out of control as noted below.. The Box Estimator was consulted. We continued IV antibiotics, continued local wound care. Pain control as needed. IV hydration. Patient is a 44-year-old female with history of diabetes who presented to the emergency department with a complaint and abscess along abdominal wall low on the right. The patient was seen by surgery team was taken to OR on the day after admision for an I and D and debridement on 02/05 The following day an irrigating wound VAC was placed. The patient denies any fever or chills, and patient was treated with imipenem and vancomycin while inpatient and a wound culture grew mixed [place]. The admitting hospitalist team took care of her diabetes and made recommendations for further care as an outpatient with insulin doses as seemed to be appropriate. Patient states today that she is continuing insulin doses as prescribed which she left the hospital and she will be following up with her PCP (Bailey Segal) for care of this. The original blood cultures grew what was most likely contamination with 1 of the blood culture bottles growing gram-negative Staphylococcus. The patient had uncontrolled diabetes with hemoglobin A1c of 10.4 patient and was seen by a critical care educator during her hopitalization and recommended to increase Lantus to 30 units daily and add 5 units with each meal and monitor with sliding scale, patient bloods sugars were running close to the low 200s throughout her hospital stay. Wound history: Patient now is about 1 week status post hospital admission and OR debridement with drainage of a abscess that was nearly becoming necrosing fasciitis. Infection was throughout the subcutaneous fat in the lower abdomen but just beginning to start to infect the fascia. In her wound the fascia was explore a spill is at the time of her surgery. Two days after surgery after packing the wound for several days we converted to a wound VAC. Patient left the hospital last Tuesday February 11, 2020 and had a wound VAC change last Monday. She states she is having no problems with wound VAC at home. Wound approximation: No Wound width: 17 cm Wound length: 8 cm Wound depth: 6 cm Drainage: Serous except for 2 pockets that did not have a wound VAC sponge in them and then that was cloudy serous drainage. Surrounding tissue appearance: Normal appearing surrounding skin except for area where a sponge was against normal skin and caused a superficial skin breakdown. This was about a 6 x 2 cm area slightly above into the right of the wound. Tunneling: There is a 6 cm deep tunnel at the 9 o'clock position line by what appears to be granulation tissue. There is also a 5 cm deep tunnel laterally to the left which has good granulation tissue within it. Percentage granulation tissue: 100% Treatment/Procedures: At this time the patient has no signs of infection that require antibiotics. . At this time we will continue wound VAC therapy and see her again in 1 week. Perri from the wound center will be contacting home health to discuss appropriate complete packing of the wound with the sponge during wound VAC placement. Patient states that her blood sugar was 149 this morning so this seems to be in better control than when she was admitted. Dressings: We will continue to you would wound VAC for therapy and see the patient back in 1 week. Wound VAC applied. Lotion will be applied to the area of the skin above into the right of the wound to protected and allowed to heal.
--- NOTE | 2020-02-25 13:24 | WPDWOUNDNOTE ---
Wound Care Note Date/Time: 02/25/20 12:24 History: This patient is a 44 y/o W female who was admitted to ICU in early 2019 with a worsening abscess on her left lower abdomen that started as a blister. Her diabetes was severely out of control as noted below.. The Assistant Distribution Manager was consulted. We continued IV antibiotics, continued local wound care. Pain control as needed along with IV hydration. She has a history of diabetes and presented to the emergency department with a complaint and abscess along abdominal wall low on the right. The patient was seen by our surgery team was taken to OR on the day after admission for an I and D and debridement on 02/05. The following day an irrigating wound VAC was placed. The patient denies any fever or chills, and patient was treated with imipenem and vancomycin while inpatient and a wound culture grew mixed [place]. The admitting hospitalist team took care of her diabetes and made recommendations for further care as an outpatient with insulin doses as seemed to be appropriate. Patient states today that she is continuing insulin doses as prescribed when she left the hospital and she will be following up with her PCP (Bailey Segal) for care of this. The original blood cultures grew what was most likely contamination with 1 of the blood culture bottles growing gram-negative Staphylococcus. The patient had uncontrolled diabetes with hemoglobin A1c of 10.4. The patient and was seen by a coagulating bath mixer during her hospitalization and recommended to increase Lantus to 30 units daily and add 5 units with each meal and monitor with a sliding scale. Patient's bloods sugars were running close to the low 200s throughout her hospital stay. Pt. has now been home for just over 2 weeks as is doing OK but still has significant pain with the dressing changes. Wound history: Patient now is about 2 weeks status post hospital admission and OR debridement with drainage of a abscess that was nearly becoming necrosing fasciitis. Infection was throughout the subcutaneous fat in the lower abdomen but just beginning to start to infect the fascia. Two days after surgery after packing the wound for several days we converted to an irrigating wound VAC. Patient left the hospital on Tuesday February 11, 2020 and had a wound VAC change with placement of a standard wound vac. She states she is having no problems with wound VAC at home. Wound approximation: No Wound width: 15.2 cm Wound length: 6 cm Wound depth: center: 4 cm 3 O'clock: 5 cm 10 -12 O'clock: 6.5 cm Drainage: serous to serosanguineous Surrounding tissue appearance: one skin tear form the Tegaderm otherwise without any breakdown or cellulitis. Tunneling: yes in 3:00 O'clock and 10-12 o'clock positions Percentage granulation tissue: 100 % Treatment/Procedures: Some very small black areas of the granulation tissue were noted. Depth from wound cared notices that this could sometimes occurs and is a specific bacteria sensitive to vancomycin and metronidazole powder. These were obtained and we will put these in the wound as powder before applying the next and each continuing wound VAC sponge. Assessment and Plan Assessment and plan (1) Abdominal wall abscess: Onset Date: ~01/2020 Code(s): L02.211 - Cutaneous abscess of abdominal wall Status: Acute Assessment and Plan: Doing well status post incision and drainage and tissue debridement with wound VAC care (see above) (2) Abdominal wall cellulitis: Onset Date: ~01/2020 Code(s): L03.311 - Cellulitis of abdominal wall Status: Resolved Assessment and Plan: now resolved. (3) Contusion of finger of right hand: Onset Date: ~02/21/20 Code(s): S60.00XA - Contusion of unspecified finger without damage to nail, initial encounter Status: Acute Assessment and Plan: Patient asked me to look at finger of her left hand where she had a contus
--- NOTE | 2020-03-11 13:08 | WPDWOUNDNOTE ---
Wound Care Note Date/Time: 03/11/20 13:08 Pt seen in the wound care clinic History: This patient is a 44 y/o W female who was admitted to ICU in early 2019 with a worsening abscess on her left lower abdomen that started as a blister. Her diabetes was severely out of control as noted below. The Bowling Alley Refinisher was consulted. We continued IV antibiotics, continued local wound care. Pain control as needed along with IV hydration. She has a history of diabetes and presented to the emergency department with a complaint and abscess along abdominal wall low on the left. The patient was seen by our surgery team was taken to OR on the day after admission for an I and D and debridement on 02/05. The following day an irrigating wound VAC was placed. The patient denies any fever or chills, and patient was treated with imipenem and vancomycin while inpatient and a wound culture grew mixed [place]. The admitting hospitalist team took care of her diabetes and made recommendations for further care as an outpatient with insulin doses as seemed to be appropriate. Patient states today that she is continuing insulin doses as prescribed when she left the hospital and she will be following up with her PCP (Bailey Segal) for care of this. The original blood cultures grew what was most likely contamination with 1 of the blood culture bottles growing gram-negative Staphylococcus. The patient had uncontrolled diabetes with hemoglobin A1c of 10.4. The patient and was seen by a embossed or impressed lettering painter during her hospitalization and recommended to increase Lantus to 30 units daily and add 5 units with each meal and monitor with a sliding scale. Patient's bloods sugars were running close to the low 200s throughout her hospital stay. Pt. has now been home for just over 4 weeks as is doing OK and now has significantly less pain with the dressing changes. Wound history: Wound history: Patient now is about 4 weeks status post hospital admission and OR debridement with drainage of a abscess that was nearly becoming necrosing fasciitis. Infection was throughout the subcutaneous fat in the lower abdomen but just beginning to start to infect the fascia. Two days after surgery after packing the wound for several days we converted to an irrigating wound VAC. Patient left the hospital on Tuesday February 11, 2020 and had a wound VAC change with placement of a standard wound vac. She states she is having no problems with wound VAC at home. Wound approximation: No Wound width: 13.5 cm Wound length: 6 cm Wound depth: 4.7 cm (at deepest area in Rt. lateral part of wound. Drainage: minimal/serous Surrounding tissue appearance: A few blisters form the Tegaderm. No cellulitis Tunneling: one area of tunneling in fartherest lateral corner of the wound Percentage granulation tissue: 100 % Treatment/Procedures: Will plan the continue with the 3 X /week wound vac changes. Dressings: Continue wound VAC therapy as previously prescribed. See the patient back in about 3 weeks. Patient states she has probably 7 or 8 pain pills left. She takes he has only once a day at the days when she has her wound VAC change. If she needs more prior to her next appointment she will call the office.
--- NOTE | 2020-04-01 12:47 | WPDWOUNDNOTE ---
Wound Care Note Date/Time: 04/01/20 12:00 History: This patient is a 44 y/o W female with a history of type II DM, COPD, and obesity, who was admitted to ICU in early 2019 with a worsening abscess on her left lower abdomen that started as a blister. Her diabetes was severely out of control as noted below. The Dining Car Steward was consulted. We continued IV antibiotics (Imipenem and Vancomycin), continued local wound care. Pain control as needed along with IV hydration. Our service was consulted during this hospitalization and she had an I&D and debridement of the abdominal abscess on 02/06/[address] Medina. Infection was throughout the subcutaneous fat in the lower abdomen and nearly infecting the fascia. The following day an irrigating wound VAC was placed. Wound culture grew mixed [place]. She was discharged on 02/11/20 and followed up with her PCP regarding diabetic management. She continues to report compliance with her medications and follow-up for her diabetes. She has since been followed in the wound clinic for this abdominal wound. Wound history: The patient had the above mentioned surgery on 02/06/[address] Medina and has since been followed in the wound clinic. We have been using a wound VAC for her abdominal wound and she was last seen [address] Medina. She has been healing well without complications. She has come down on her need for pain medication and is no longer taking narcotics prior to dressing changes. No issues or complaints with the wound or wound VAC when seen today. Wound approximation: No Drainage: Scant serous Surrounding tissue appearance: Healthy with no induration, erythema, or warmth. Small areas of superficial skin irritation from where the tegaderm of the wound VAC is applied inferior to the wound on the abdomen. Tunneling: None Percentage granulation tissue: 100% Treatment/Procedures: Wound VAC dressing change and wound inspection Dressings: Wound VAC changes three times weekly. Assessment and Plan Assessment and plan (1) Abdominal wall abscess: Onset Date: ~01/2020 Code(s): L02.211 - Cutaneous abscess of abdominal wall Status: Acute Assessment and Plan: Continue wound VAC with changes three times weekly. Continue home health. We will plan to see the patient back in 2 weeks in the wound clinic. 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 Discussed the option of switching to silver gel/nugauze/abd dressing changes instead of the wound VAC with the possibility of this taking even longer to heal - the patient agreed to continue the wound VAC for now. She still has enough Flagyl for dressing changes to be applied to the wound bed prior to applying sponge. She is no longer requiring Shafer for pain control - she was encouraged to switch to Tylenol extra strength 500 mg every 6 hours as needed. We have asked the wound care nurses to consult Plastic Surgery to evaluate the patient for a possible panniculectomy. We would appreciate their recommendations. Discussed this briefly with the patient today and she agreed to talk to Plastics for their opinion. Review of Systems Review of Systems: All systems reviewed & are unremarkable except as noted in HPI and below Exam Const: General: healthy appearing, comfortable, alert and awake Nutritional Appearance: obese Orientation/consciousness: patient oriented x3 Skin: Other: Open wound of the lower mid abdomen that is situated in the fold of her panniculus that has 100% granulation tissue and has decreased in overall size since her last appointment. Healing well. No cellulitis. Neuro: General: moves all extremities and no focal motor deficits Extrem: General: normal to inspection and full ROM Psych: Appearance: grossly normal Mental Status: mental status grossly normal Insight: Good insight present (Psych) Judgement: Good judgement present (Psych)
--- NOTE | 2020-04-06 14:19 | WPDCN ---
Assessment and Plan Assessment and plan (1) Open wound of abdomen: Qualifiers: Encounter type: initial encounter Qualified Code(s): S31.109A - Unspecified open wound of abdominal wall, unspecified quadrant without penetration into peritoneal cavity, initial encounter Code(s): S31.109A - Unspecified open wound of abdominal wall, unspecified quadrant without penetration into peritoneal cavity, initial encounter Status: Acute Assessment and Plan: She would like to continue dressing changes and monitor for now. Will follow. Today I did spend over 50 minutes including her review of records, discussion, charting. Today we had a lengthy discussion options. Went risks, benefits, alternatives of surgical and nonsurgical options. After hearing all this extensively she would like to continue nonsurgically. She understands there is always the risk that she may need surgical intervention in the future. We will continue dressing changes and follow. (2) Abdominal wall abscess: Onset Date: ~01/2020 Code(s): L02.211 - Cutaneous abscess of abdominal wall Status: Acute Assessment and Plan: No signs of active infection. (3) Type 2 diabetes mellitus: Code(s): E11.9 - Type 2 diabetes mellitus without complications Status: Acute Assessment and Plan: She understands the importance of good glycemic control. (4) COPD (chronic obstructive pulmonary disease): Code(s): J44.9 - Chronic obstructive pulmonary disease, unspecified Status: Acute HPI Data of Consult Date/Time: 04/06/20 12:15 Requesting Physician: Pedro Luis Medina MD Primary Care Provider: Bailey Segal, Consult Narrative Narrative: Nat Chavarria is a 45 year old female who comes in today for evaluation of lower abdominal wound. She presented to the emergency room on 02/05/2020 with a lower abdominal infection. Subsequently she was taken to the operating by Dr. Medina for debridement on 02/06/2020. A wound VAC was placed in order to manage the wound. She says she has noticed significant progress especially and the last 3-4 weeks with decreasing size. Also decreasing depth. She is feeling well. No fevers or chills. She really does not want have surgery but would if necessary. Reviewed all notes and records extensively in the medical record. Review of Systems Review of Systems: All systems reviewed & are unremarkable except as noted in HPI and below PMFSH Past Medical History Medical History Actinic keratosis Contusion of finger of right hand Degenerative joint disease of left hip History of basal cell carcinoma (BCC) Lateral epicondylitis of right elbow Left hip pain Skin cancer screening Trochanteric bursitis, left hip Type 2 diabetes mellitus Surgical History Surgical History H/O tubal ligation History of delivery x 1 History of knee surgery Hx of cholecystectomy laparoscopic Family History Family History Other Diabetes mellitus Family history of alcoholism Family history of arthritis Family history of malignant neoplasm Family history of mental disorder Social History Social History Smoking packs per day: 0.5 Smoking cigarettes per day: 10.0 Years smoked: 30 Smoking pack-years: 15.00 Smoking status: Current every day smoker Tobacco type: cigarettes Alcohol intake: former Substance use: never Gender identity (if verbalized by the patient): Female Spiritual care concerns: No Meds Home Medications and Allergies Home Medications Medication Instructions Recorded Confirmed Type meloxicam 7.5 mg tablet 7.5 mg PO DAILY PRN 08/22/19 02/18/20 History albuterol sulfate [Ventolin HFA] 2 puff INHALATION
--- NOTE | 2020-04-17 15:13 | WPDWOUNDNOTE ---
Wound Care Note Date/Time: 04/17/20 15:13 History: This patient is a 44 y/o W female with a history of type II DM, COPD, and obesity, who was admitted to ICU in early 2019 with a worsening abscess on her left lower abdomen that started as a blister. Her diabetes was severely out of control as noted below. The Mechanical Pencils Assembler was consulted. We continued IV antibiotics (Imipenem and Vancomycin), continued local wound care. Pain control as needed along with IV hydration. Our service was consulted during this hospitalization and she had an I&D and debridement of the abdominal abscess on 02/06/[address] Medina. Infection was throughout the subcutaneous fat in the lower abdomen and nearly infecting the fascia. The following day an irrigating wound VAC was placed. Wound culture grew mixed [place]. She was discharged on 02/11/20 and followed up with her PCP regarding diabetic management. She continues to report compliance with her medications and follow-up for her diabetes. She has since been followed in the wound clinic for this abdominal wound. Wound history: Wound history: The patient had the above mentioned surgery on 02/06/20 and has since been followed in the wound clinic. We have been using a wound VAC for her abdominal wound and she was last seen 3 weeks ago. She has been healing well without complications. She has come down on her need for pain medication and is no longer taking narcotics prior to dressing changes. No issues or complaints with the wound or wound VAC when seen today. In the interim she did talk with Dr. Leigh about possibility of a panniculectomy and excision of the remaining wound however he stated this would be considered cosmetic and probably not covered by her insurance. Therefore, she has decided not to proceed in that manner. Today we feel that the wound is healed enough that we will stop the wound VAC and start silver rope dressings. Patient will then be able go back to work with the dressing on this area. Gave her return to work for 04/21/2020 with no restrictions. Wound width: 8.4 cm Wound length: 3.3 cm Wound depth: 0.3 cm Drainage: None Surrounding tissue appearance: Clean and normal. There is also some very thin re-epithelialization going on on the edges of the wound. Tunneling: None Percentage granulation tissue: 100% Treatment/Procedures: None today. We decided to stop the wound VAC today and we are going to go with dressings as noted below. Will see the patient in follow-up in 3 weeks. Dressings: Aquacel Ag advantage applied to the crease of the wound and then covered with an ABD and tape.
--- NOTE | 2020-05-01 11:31 | WPDWOUNDNOTE ---
Wound Care Note Date/Time: 05/01/20 11:31 History: This patient is a 44 y/o W female with a history of type II DM, COPD, and obesity, who was admitted to ICU in early 2019 with a worsening abscess on her left lower abdomen that started as a blister. Her diabetes was severely out of control as noted below. The Critical Care Clinical Nurse Specialist was consulted. We continued IV antibiotics (Imipenem and Vancomycin), continued local wound care. Pain control as needed along with IV hydration. Our service was consulted during this hospitalization and she had an I&D and debridement of the abdominal abscess on 02/06/[address] Medina. Infection was throughout the subcutaneous fat in the lower abdomen and nearly infecting the fascia. The following day an irrigating wound VAC was placed. Wound culture grew mixed [place]. She was discharged on 02/11/20 and followed up with her PCP regarding diabetic management. She continues to report compliance with her medications and follow-up for her diabetes. She has since been followed in the wound clinic for this abdominal wound. Wound history: The patient had the above mentioned surgery on 02/06/20 and has since been followed in the wound clinic. We have been using a wound VAC for her abdominal wound and she was last seen 3 weeks ago. She has been healing well without complications. She has come down on her need for pain medication and is no longer taking narcotics prior to dressing changes. No issues or complaints since last seen by Dr. Medina. She is now doing wound care dressing changes with silver rope daily and gauze. She is back to work and tolerating this well with only taking Ibuprofen once in the morning for discomfort while sitting during the day. She was seen by Plastics in the past regarding this wound and decided not to proceed with any surgical intervention for healing, which would be considered cosmetic and not covered by insurance. She is now seen in the wound clinic today. Wound approximation: No Wound width: 7 cm Wound length: 2.5 cm Wound depth: 0.2 cm Drainage: Serosanguineous, minimal Surrounding tissue appearance: Healthy surrounding tissue without cellulitis or abnormalities. Tunneling: None Percentage granulation tissue: 100% Treatment/Procedures: Wound dressing change. Dressings: Continue silver rope lying in the wound bed and covered with 4 x 4 gauze and medipore tape. Assessment and Plan Assessment and plan (1) Abdominal wall abscess: Onset Date: ~01/2020 Code(s): L02.211 - Cutaneous abscess of abdominal wall Status: Acute Assessment and Plan: The patient is doing well and the wound looks good today. No longer requiring home health. Continue silver rope dressing changes daily and covered with 4 x 4 gauze and medipore tape. Her is helping with dressing changes and having no issues. The wound is continuing to heal very well with the current treatment and epithelializing around the edges. Hopefully this will continue to decrease in size and heal in. She is requesting an afternoon appointment, therefore we will plan on following up with her in our office with Dr. Medina in 1 month. Call sooner with any questions or concerns. Review of Systems Review of Systems: All systems reviewed & are unremarkable except as noted in HPI and below Exam Const: General: cooperative and comfortable Orientation/consciousness: patient oriented x3 Skin: Other: Open lower abdominal wound continuing to epithelialize around the edges of the wound bed with pink, healthy granulation tissue throughout the wound bed, decreasing in size. Extrem: General: normal to inspection and no clubbing, cyanosis or edema Psych: Mental Status: mental status grossly normal Insight: Good insight present (Psych) Judgement: Good judgement present (Psych)
== END 2020-05-18 08:53 | disposition home or self-care (01) ==
LOC: ANHWOC 07:48
PROVIDERS: PCP Family Medicine; Visit Provider Surgery
DX: Z48.01 Encounter for change or removal of surgical wound dressing (principal)
CPT/HCPCS: 97606; 99212; 99213; A9270; G0463; J3370

== ENCOUNTER 2020-10-06 00:44 | Day surgery (SDC) | payer OTHER, SELFPAY ==
[2020-09-24 09:34] VITALS: BMI 49.9
--- NOTE | 2020-10-06 07:30 | WPDGICN ---
Assessment and Plan Assessment and plan (1) Chronic idiopathic constipation: Code(s): K59.04 - Chronic idiopathic constipation Status: Acute Assessment and Plan: Patient with chronic constipation. She patient strongly encouraged to increase activity. High-fiber diet is encouraged with playing a liquids. Maintain activity as much as feasible. Currently she will continue Linzess 72 micro g p.o. daily which appears to be helping with her bowel habits. Colonoscopy will be performed today further recommendations will be given subsequently. (2) BMI 45.0-49.9, adult: Code(s): Z68.42 - Body mass index [BMI] 45.0-49.9, adult Status: Acute (3) Type 2 diabetes mellitus: Code(s): E11.9 - Type 2 diabetes mellitus without complications Status: Acute (4) COPD (chronic obstructive pulmonary disease): Code(s): J44.9 - Chronic obstructive pulmonary disease, unspecified Status: Acute GI Consult Note Consult date/time: 10/06/20 07:30 HPI: Nat Chavarria is a 45 year old female Presents for colonoscopy. Patient has a history of chronic constipation. She has had difficulty with many different laxatives. Currently reports that she is having improved bowel habits while taking Linzess 72 micro g p.o. daily. Patient denies any bleeding. Patient presents today for screening colonoscopy to assess for potential contributing causes to her chronic constipation. Review of Systems Review of Systems: All systems reviewed & are unremarkable except as noted in HPI and below PMFSH Past Medical History Medical History Actinic keratosis Contusion of finger of right hand (~02/21/20) Degenerative joint disease of left hip History of basal cell carcinoma (BCC) Lateral epicondylitis of right elbow Left hip pain Skin cancer screening Trochanteric bursitis, left hip Type 2 diabetes mellitus Surgical History Surgical History H/O tubal ligation History of delivery x 1 History of knee surgery Hx of cholecystectomy laparoscopic Family History Family History Other Diabetes mellitus Family history of alcoholism Family history of arthritis Family history of malignant neoplasm Family history of mental disorder Social History Social History Smoking packs per day: 1 Smoking cigarettes per day: 20.0 Years smoked: 20 Smoking pack-years: 20.00 Smoking status: Current every day smoker Tobacco type: cigarettes Alcohol intake: current Substance use: never Substance use type: does not use Living arrangements: with family Gender identity (if verbalized by the patient): Female Spiritual care concerns: No Meds Home Medications and Allergies Home Medications Medication Instructions Recorded Confirmed Type albuterol sulfate [Ventolin HFA] 2 puff INHALATION Q6H PRN 02/05/20 09/24/20 History blood sugar diagnostic [Easy Trak #10 ea 02/11/20 08/13/20 Rx Glucose Test] blood sugar diagnostic [OneTouch #150 ea 02/11/20 08/13/20 Rx Verio test strips] insulin glargine [Lantus U-100 30 unit SUBCUT DAILY #50 ml 02/11/20 09/24/20 Rx Insulin] atorvastatin 20 mg tablet 20 mg PO DAILY 08/13/20 09/24/20 History fluoxetine 20 mg capsule 20 mg PO DAILY 08/13/20 09/24/20 History linaclotide 72 mcg capsule 72 mcg PO DAILY #30 cap 08/19/20 09/24/20 Rx Adults Multivitamin 1 cap PO DAILY 09/24/20 09/24/20 History Daily Fiber 2 cap PO DAILY 09/24/20 09/24/20 History empagliflozin [Jardiance] 25 mg PO DAILY 09/24/20 09/24/20 History famotidine 20 mg PO DAILY 09/24/20 09/24/20 History lorazepam 0.5 mg PO BID PRN 09/24/20 09/24/20 History meloxicam 15 mg PO DAILY PRN 09/24/20 09/24/20 History Allergies Allergy/AdvReac Type Se
[2020-10-06 07:35] VITALS: BP 105/65; PULSE 81; RESP 16; TEMP 35.8; O2SAT 100; BMI 50.7
[2020-10-06] MEDS: LACTATED RINGERS 1,000 ML 150 ML IV CONT (07:48)
[2020-10-06 07:49] LABS: Glucose Point of Care 119 mg/dl (65-105)
--- NOTE | 2020-10-06 08:09 | WPDANESEPPF ---
Anes - Initial Pre Proc Eval Procedure: Operation Date: 10/06/20 08:30 Proposed Procedures p Colonoscopy - Andreas Oneill MD Date/Time: 10/06/20 08:09 Surgeon: Andreas Oneill MD Pre Op Diagnosis: constipation Patient Data Age: 45 Gender: F Height: 1.55 m Weight: 121.8 kg Last Vital Signs Temp 35.8 C L 10/06/20 07:35 Pulse 81 10/06/20 07:35 Resp 16 10/06/20 07:35 BP 105/65 10/06/20 07:35 Pulse Ox 100 10/06/20 07:35 Allergies Allergy/AdvReac Type Severity Reaction Status Date / Time No Known Allergies Allergy Unknown Verified 10/06/20 07:32 Home Medications Medication Instructions Recorded Confirmed Type albuterol sulfate [Ventolin HFA] 2 puff INHALATION Q6H PRN 02/05/20 10/06/20 History blood sugar diagnostic [Easy Trak #10 ea 02/11/20 10/06/20 Rx Glucose Test] blood sugar diagnostic [OneTouch #150 ea 02/11/20 10/06/20 Rx Verio test strips] insulin glargine [Lantus U-100 30 unit SUBCUT DAILY #50 ml 02/11/20 10/06/20 Rx Insulin] atorvastatin 20 mg tablet 20 mg PO DAILY 08/13/20 10/06/20 History fluoxetine 20 mg capsule 20 mg PO DAILY 08/13/20 10/06/20 History linaclotide 72 mcg capsule 72 mcg PO DAILY #30 cap 08/19/20 10/06/20 Rx Adults Multivitamin 1 cap PO DAILY 09/24/20 10/06/20 History Daily Fiber 2 cap PO DAILY 09/24/20 10/06/20 History empagliflozin [Jardiance] 25 mg PO DAILY 09/24/20 10/06/20 History famotidine 20 mg PO DAILY 09/24/20 10/06/20 History lorazepam 0.5 mg PO BID PRN 09/24/20 10/06/20 History meloxicam 15 mg PO DAILY PRN 09/24/20 10/06/20 History Laboratory Tests 10/06/20 07:43 POC Capillary Glucose 119 mg/dl H mg/dl (65-105) Patient hx anesthesia problems: none Family hx anesthesia problems: none PMFSH Past Medical History Medical History Actinic keratosis Contusion of finger of right hand (~02/21/20) Degenerative joint disease of left hip History of basal cell carcinoma (BCC) Lateral epicondylitis of right elbow Left hip pain Skin cancer screening Trochanteric bursitis, left hip Type 2 diabetes mellitus Surgical History Surgical History H/O tubal ligation History of delivery x 1 History of knee surgery Hx of cholecystectomy laparoscopic Family History Family History Other Diabetes mellitus Family history of alcoholism Family history of arthritis Family history of malignant neoplasm Family history of mental disorder Social History Social History Smoking packs per day: 1 Smoking cigarettes per day: 20.0 Years smoked: 20 Smoking pack-years: 20.00 Smoking status: Current every day smoker Tobacco type: cigarettes Alcohol intake: current Substance use: never Substance use type: does not use Living arrangements: with family Gender identity (if verbalized by the patient): Female Spiritual care concerns: No Anes - Eval Final PreProcedure Day of Procedure 10/06/20 08:09 Patient weight: morbidly obese Heart: regular rate and rhythm Lungs: clear to auscultation Airway: Mallampati scale class II Neurological: alert and oriented Last oral intake: >/= 8 hours ASA classification: III Emergent: no Anesthetic plan: proceed Anesthesia type and monitoring: general and standard monitoring Informed Consent: The patient's anesthetic plan and its attendant risks and benefits were discussed with the patient/family/POA. Questions were solicited and answers provided to the satisfaction of the patient/family/POA.
[2020-10-06 09:03] VITALS: BP 96/75; PULSE 77; RESP 16; O2SAT 100
[2020-10-06 09:13] VITALS: BP 120/58; PULSE 77; RESP 16; O2SAT 100
[2020-10-06 09:23] VITALS: BP 121/59; PULSE 76; RESP 16; O2SAT 100
== END 2020-10-06 09:05 | disposition home or self-care (01) ==
PROVIDERS: PCP Family Medicine; Visit Provider Internal Medicine Gastroenterology
PROC: 0DJD8ZZ Inspection of Lower Intestinal Tract, Via Natural or Artificial Opening Endoscopic (ICD-10-PCS; CPT 45378; principal; 2020-10-06 08:30)
DX: K59.04 Chronic idiopathic constipation (principal); K64.8 Other hemorrhoids; Z79.51 Long term (current) use of inhaled steroids; L57.0 Actinic keratosis; Z85.828 Personal history of other malignant neoplasm of skin; E11.9 Type 2 diabetes mellitus without complications; F17.210 Nicotine dependence, cigarettes, uncomplicated; E66.01 Morbid (severe) obesity due to excess calories; Z68.43 Body mass index [BMI] 50.0-59.9, adult; J44.9 Chronic obstructive pulmonary disease, unspecified
CPT/HCPCS: 45378; 82948; J2704; J7120

== ENCOUNTER 2020-12-26 15:35 | Emergency (ER) | payer OTHER, SELFPAY ==
--- NOTE | ~2020-12-26 | CT_ITS ---
EXAMINATION: CT abdomen pelvis w con DATE: 12/26/2020 17:17 INDICATION: Lower abdominal pain. TECHNIQUE: Computed tomography (CT) of the abdomen and pelvis was performed with 100 cc Omnipaque 350 intravenous contrast. The dose-length product was 1456.97 mGy-cm. Automated exposure control and ite rative reconstruction technique were employed. COMPARISON: CT dated 02/04/2020. FINDINGS: Lung bases are unremarkable. No endobronchial lesions. Heart size is normal. Status post ch olecystectomy. No significant vascular abnormality. No lymphadenopathy. Status post cholecystectomy. The liver, spleen, pancreas, adrenal glands and left kidney are unremarkable. There is cortical thinn ing of the right kidney with adjacent nonobstructing stone. There is right renal cyst. Nonobstructive bowel gas pattern. Large low-density mass in the uterus measuring 5.6 cm, likely a uterine fibroid. There are probable additional hypodense masses in the uterus, likely additional fibroids, one of whic h is exophytic at the fundus. No abnormal extrauterine no acute osseous abnormality. Mild lumbar spon dylosis. Pelvic masses or fluid collections. Small fat-containing umbilical hernia. IMPRESSION: 1. Enlarged uterus containing fibroids, largest measuring 5.6 cm. Reviewed, dictated and finalized at location A.
[2020-12-26 15:37] VITALS: BP 148/102; PULSE 94; RESP 16; TEMP 36.5; O2SAT 98
[2020-12-26 15:58] LABS: Basophils Absolute Auto 0.1 K/mm3 (0.0-0.1); Basophils Percent Auto 0.5 % (0.2-1.2); Eosinophils Absolute Auto 0.3 K/mm3 (0-0.3); Eosinophils Percent Auto 3.2 % (0-4.4); Hematocrit 48.4 % (37.0-47.0); Hemoglobin 15.9 g/dL (12.0-15.0); Immature Granulocyte Absolute 0.03 K/mm3 (0.00-0.031); Immature Granulocyte Percent A 0.3 % (0-0.5); Lymphocytes Absolute Auto 3.21 K/mm3 (0.9-3.2); Lymphocytes Percent Auto 33.2 % (18.3-44.2); Mean Corpuscular HGB Conc 32.9 g/dl (32-36); Mean Corpuscular Hemoglobin 32.9 pg (26-34); Mean Platelet Volume 9.3 fl (7.4-10.4); Monocytes Percent Auto 10.1 % (2.6-8.5); Neutrophils Absolute Auto 5.1 K/mm3 (1.3-6.7); Neutrophils Percent Auto 52.7 % (45.5-73.1); Platelet Count Result 303 k/mm3 (150-375); Red Blood Count 4.84 M/mm3 (4.2-5.4); Red Cell Distribution Width 14.2 % (11.5-14.5); White Blood Count 9.7 K/mm3 (4.5-10.0)
[2020-12-26] MEDS: MORPHINE SULFATE (*CRX) 4 MG/ML INJ IV PUSH (16:14)
[2020-12-26 16:19] LABS: Alanine Aminotransferase 23 U/L (4-35); Albumin Level 4.4 g/dL (3.5-5.1); Alkaline Phosphatase 92 U/L (38-126); Anion Gap 7 mmol/L (8-16); Aspartate Amino Transferase 24 U/L (14-36); Bilirubin,Total 0.3 mg/dL (0.2-1.3); Blood Urea Nitrogen 13 mg/dL (7-17); Calcium 9.4 mg/dL (8.4-10.2); Carbon Dioxide 22 mmol/L (22-30); Chloride 106 mmol/L (98-107); Estimated Glomerular Filt Rate > 60; Glucose 191 mg/dL (65-110); Lipase 78 U/L (23-300); Potassium 4.8 mmol/L (3.4-5.0); Sodium 135 mmol/L (137-145)
[2020-12-26 17:38] VITALS: BP 132/78; PULSE 82; RESP 18; O2SAT 99
[2020-12-26] MEDS: KETOROLAC 30 MG/ML VIAL (*BKC) IV PUSH (18:17)
[2020-12-26 18:36] LABS: Add Urine Microscopic? YES; Appearance Urine Clear (Clear); Bilirubin Urine Negative (Negative); Blood Urine Negative (Negative); Color Urine Yellow (Yellow); Glucose Urine UA 3+ mg/dL (Negative); Ketones Urine Negative (Negative); Leukocyte Esterase Ur Negative LEU/UL (Negative); Nitrate Urine Negative (Negative); Protein Urine Negative (Negative); Squamous Epithelial Cell Urine Many /hpf (Few); Urobilinogen Urine Negative mg/dL (<2.0); WBC Urine 0-3 /hpf
--- NOTE | 2020-12-26 18:36 | ED.ABDPAIN ---
HPI - Abdominal Pain General Chief Complaint: Abdominal Pain Stated Complaint: abdominal pain Time Seen by Provider: 12/26/20 15:51 Source: patient and family Mode of arrival: ambulatory Limitations: no limitations History of Present Illness HPI narrative: 45-year-old female Here for evaluation of abdominal pain She notes that she has been having this pain daily for 2 or 3 months Pain radiates across and throughout her lower abdomen primarily and seems to radiate towards her rectum It usually lasts for 5 hours and then just gradually spontaneously resolves Nothing seems to exacerbate it particularly She has had several appointments with GI and a colonoscopy and been tried on a couple of different medications for IBS without relief She does not have vomiting or diarrhea or urinary symptoms She had a previous uterine ablation A cholecystectomy was done 2 or 3 years ago for symptoms that were clearly different than her present complaint Related Data Home Medications Medication Instructions Recorded Confirmed albuterol sulfate [Ventolin HFA] 2 puff INHALATION Q6H PRN 02/05/20 11/18/20 atorvastatin 20 mg tablet 20 mg PO DAILY 08/13/20 11/18/20 fluoxetine 20 mg capsule 20 mg PO DAILY 08/13/20 11/18/20 Adults Multivitamin 1 cap PO DAILY 09/24/20 11/18/20 empagliflozin [Jardiance] 25 mg PO DAILY 09/24/20 11/18/20 famotidine 20 mg PO DAILY 09/24/20 11/18/20 lorazepam 0.5 mg PO BID PRN 09/24/20 11/18/20 Allergies Allergy/AdvReac Type Severity Reaction Status Date / Time No Known Allergies Allergy Unknown Verified 12/26/20 15:47 Review of Systems Review of Systems: All systems reviewed & are unremarkable except as noted in HPI and below Constitutional: Constitutional: Reports no additional constitutional complaints, Denies chills, Denies fever(s) and Denies headache(s) Eyes: Eyes: Reports no additional eye complaints and Denies change in vision ENT: Denies headache(s) and Denies sore throat Cardiovascular: Cardiovascular: Denies chest pain and Denies dyspnea Respiratory: Respiratory: Denies cough and Denies dyspnea Gastrointestinal: Gastrointestinal: Reports abdominal pain, Denies diarrhea and Denies vomiting Genitourinary: Genitourinary: Denies hematuria, Denies urinary frequency and Denies dysuria Musculoskeletal: Musculoskeletal: Denies deformity, Denies arthralgias, Denies joint swelling and Denies numbness Integumentary/Breasts: Skin/Breast: Denies rash and Denies wounds Neurologic: Denies headache(s), Denies focal weakness and Denies numbness Psychiatric: Psychiatric: Reports no additional psychiatric complaints Endocrine: Endocrine: Reports no additional endocrine complaints Hematologic/Lymphatic: Hematologic/Lymphatic: Reports no additional hematologic/lymphatic complaints Allergic/Immunologic: Allergic/Immunologic: Reports no additional allergic/immunologic complaints PMFSH Past Medical History Medical History Actinic keratosis Contusion of finger of right hand (~02/21/20) Degenerative joint disease of left hip History of basal cell carcinoma (BCC) Lateral epicondylitis of right elbow Left hip pain Skin cancer screening Trochanteric bursitis, left hip Type 2 diabetes mellitus Surgical History Surgical History H/O tubal ligation History of delivery x 1 History of knee surgery Hx of cholecystectomy laparoscopic Family History Family History Other Diabetes mellitus Family history of alcoholism Family history of arthritis Family history of malignant neoplasm Family history of mental disorder Social History Social History Smoking packs per day: 1 Smoking cigarettes per day: 20.0 Years smoked: 20 Smoking pack-years: 20.00 Tobacco type: cigarettes Al
[2020-12-26 19:08] VITALS: BP 111/97; PULSE 75; RESP 18; O2SAT 99
== END 2020-12-26 19:10 | disposition home or self-care (01) ==
PROVIDERS: Emergency Medicine; Emergency Provider Emergency Medicine; PCP Family Medicine
DX: D25.9 Leiomyoma of uterus, unspecified (principal); E11.9 Type 2 diabetes mellitus without complications; M16.12 Unilateral primary osteoarthritis, left hip; M70.62 Trochanteric bursitis, left hip; Z85.828 Personal history of other malignant neoplasm of skin; F17.210 Nicotine dependence, cigarettes, uncomplicated; Z79.4 Long term (current) use of insulin; Z79.84 Long term (current) use of oral hypoglycemic drugs
CPT/HCPCS: 36415; 74177; 80053; 81001; 81025; 83690; 85025; 96374; 96375; 99284; J1885; J2270; Q9967

== ENCOUNTER 2021-02-04 12:25 | Outpatient (CLI) | payer OTHER, SELFPAY ==
--- NOTE | 2021-02-04 12:38 | ECG_ITS ---
Measurements Intervals Center Rate: 80 P: 54 RI: 189 QRS: 33 QRSD: 102 T: 35 QT: 387 QTc: 448 Interpretive Statements SINUS RHYTHM POSSIBLE LEFT ATRIAL ENLARGEMENT DELAYED PRECORDIAL R/S TRANSITION BASELINE ARTIFACT- I, III, AVR, AVL, AVF, V1-V6 BORDERLINE ECG Electronically Signed On 02-04-2021 16:50:10 SYSTEMATIC THEOLOGY PROFESSOR by Narinder Francois D.O.
== END 2021-02-04 12:26 | disposition home or self-care (01) ==
LOC: ANHSURGERY 12:30
PROVIDERS: PCP Family Medicine; Visit Provider Obstetrics & Gynecology
DX: D25.9 Leiomyoma of uterus, unspecified (principal); E11.9 Type 2 diabetes mellitus without complications; Z01.818 Encounter for other preprocedural examination; R94.31 Abnormal electrocardiogram [ECG] [EKG]
CPT/HCPCS: 36415; 86850; 86900; 86901; 93005

== ENCOUNTER 2021-02-09 00:42 | Day surgery (SDC) | payer OTHER, SELFPAY ==
[2021-02-01 14:57] VITALS: BMI 51.0
--- NOTE | 2021-02-01 15:09 | PC.NURSE ---
Report to the Outpatient Waiting Room, entrance under the green pavilion located off [facility], at time 8:30 on date 02/09/21. OR Time: 10:30. - You and your visitor will be asked a series of questions to screen for COVID 19 for your protection. - A mask is required within the hospital. - Only one visitor is allowed at this time. Patient visitors will be guided where to wait when not with patient. Preoperative COVID Testing Requirements: No COVID Test needed if: (proof is required; if not received patient will have Rapid Test prior to entry) - Patient has received COVID Vaccine at least 14 days prior to procedure date or - Patient has positive COVID test result within last 90 days of surgery date. COVID Test needed if above criteria is not met If not COVID vaccinated a COVID test must be conducted within 72 hours of surgery and patient is asked to isolate self from time of testing until procedure. You will go to the [facility] for your COVID testing. The [facility] is located at the corner of [address] [facility]. You will only be called if COVID results are positive and your surgeon may reschedule your elective surgery date. Patients may have clear liquids (water, carbonated beverages, clear teas, apple juice) until 3 hours prior to surgery with a maximum of 20 ounces. - No food from midnight until time of surgery - Infants may have breast milk until 4 hours before surgery, infant formula 6 hours prior to surgery. - Children will be allowed to drink immediately following surgery. If applicable, please bring a bottle or sippy cup to assist with drinking. Juice, water, soda, and popsicles are readily available. For infants on formula, please bring formula the day of surgery. Pacifiers are allowed. Take the following medications with a SIP of water the morning of surgery: INHALER (IF NEEDED), FLUOXETINE, LORAZEPAM (IF NEEDED) Medications to discontinue per physician: VITAMINS/SUPPLEMENTS Date to take last dose: 02/05/21 Please no make-up, nail yoruba, hairspray, perfume, deodorant, or body powder the day of surgery. No jewelry (including any body piercings) or valuables the day of surgery, leave them at home. Please take a shower or bath the night before, or the morning of, surgery with an antibacterial soap. Wear comfortable, loose fitting clothing. Children are encouraged to wear pajamas. - Jewelry must be removed prior to entering the operating room. Rings and piercings that are not removed may be cut off. - The hospital will not accept responsibility for valuables. - Please leave all valuables, including medications, at home the day of surgery. If you are going home after surgery, a licensed school bus driver/custodian must drive you home. - NO public transportation without another adult. - We recommend that an adult stay with you for 24 hours following discharge. - We also recommend that you do not drive, make important decision, drink alcoholic beverages, or take any drugs that were not prescribed by your health care provider for at least 24 hours after your discharge time. For Pediatric surgeries, we recommend two adults accompany the child home (only one inside the building at this time). Follow any additional instructions given to you from your surgeon. Telephone instructions given to CARRIE STONE and asked if any additional questions and then verbalized understanding. Patient advised to call surgeon office or pre surgery nurse liaison [phone] if any additional questions.
[2021-02-09] VITALS (11 sets, daily range): BP systolic 117–154; BP diastolic 67–99; PULSE 79–104; RESP 12–20; TEMP 36–36.9; O2SAT 92–100
--- NOTE | 2021-02-09 08:27 | WPDANESEPPF ---
Anes - Initial Pre Proc Eval Procedure: Operation Date: 02/09/21 10:00 Proposed Procedures p Total Laparoscopic Hysterectomy with Bilateral Salpingectomy - Marcella Manley MD Date/Time: 02/09/21 08:27 Surgeon: Marcella Manley MD Pre Op Diagnosis: leiomyoma of uterine Patient Data Age: 45 Gender: F Height: 1.55 m Weight: 122.47 kg Allergies Allergy/AdvReac Type Severity Reaction Status Date / Time No Known Allergies Allergy Unknown Verified 02/01/21 14:54 Home Medications Medication Instructions Recorded Confirmed Type albuterol sulfate [Ventolin HFA] 2 puff INHALATION Q6H PRN 02/05/20 02/01/21 History blood sugar diagnostic [Easy Trak #10 ea 02/11/20 11/18/20 Rx Glucose Test] blood sugar diagnostic [OneTouch #150 ea 02/11/20 11/18/20 Rx Verio test strips] insulin glargine [Lantus U-100 30 unit SUBCUT DAILY #50 ml 02/11/20 02/01/21 Rx Insulin] atorvastatin 20 mg tablet 20 mg PO DAILY 08/13/20 02/01/21 History fluoxetine 20 mg capsule 20 mg PO DAILY 08/13/20 02/01/21 History Adults Multivitamin 1 cap PO DAILY 09/24/20 02/01/21 History empagliflozin [Jardiance] 25 mg PO DAILY 09/24/20 02/01/21 History famotidine 20 mg PO DAILY 09/24/20 02/01/21 History lorazepam 0.5 mg PO BID PRN 09/24/20 02/01/21 History dicyclomine 10 mg capsule 10 mg PO TID PRN #90 cap 12/16/20 02/01/21 Rx naproxen sodium [Aleve] 440 mg PO BID 02/01/21 02/01/21 History Patient hx anesthesia problems: none Family hx anesthesia problems: none Results Review: All pre-operative results and documents have been reviewed as part of the pre-operative evaluation. FOR[facility]LY [facility] Past Medical History Medical History Actinic keratosis Contusion of finger of right hand (~02/21/20) Degenerative joint disease of left hip History of basal cell carcinoma (BCC) Lateral epicondylitis of right elbow Left hip pain Skin cancer screening Trochanteric bursitis, left hip Type 2 diabetes mellitus Surgical History Surgical History H/O tubal ligation History of delivery x 1 History of knee surgery Hx of cholecystectomy laparoscopic Family History Family History Other Diabetes mellitus Family history of alcoholism Family history of arthritis Family history of malignant neoplasm Family history of mental disorder Social History Social History Smoking packs per day: 1 Smoking cigarettes per day: 20.0 Years smoked: 20 Smoking pack-years: 20.00 Tobacco type: cigarettes Alcohol intake: current Alcohol use details: 2-3/MONTH Substance use: never Substance use type: does not use Living arrangements: with family Gender identity (if verbalized by the patient): Female Sexual Orientation (if Verbalized by the Patient): Straight or Heterosexual Spiritual care concerns: No Anes - Eval Final PreProcedure Day of Procedure 02/09/21 08:27 Patient weight: morbidly obese Heart: regular rate and rhythm Lungs: clear to auscultation Airway: Mallampati scale class II Neurological: alert and oriented Last oral intake: >/= 8 hours ASA classification: III Emergent: no Anesthetic plan: proceed Anesthesia type and monitoring: general ETT and standard monitoring Results Review: All pre-operative results and documents have been reviewed as part of the pre-operative evaluation. Informed Consent: The patient's anesthetic plan and its attendant risks and benefits were discussed with the patient/family/POA. Questions were solicited and answers provided to the satisfaction of the patient/family/POA.
--- NOTE | 2021-02-09 08:41 | WPDHPUPDATE1 ---
History and Physical Update Update Date/Time: 02/09/21 08:41 History and Physical has been reviewed, including an updated exam of the patient. There are NO changes in the patient's condition. Risks, benefits, and alternatives have been discussed and questions answered. Patient agrees to proceed with procedure.
[2021-02-09] MEDS: ACETAMINOPHEN 500 MG TABLET 1000 MG PO (09:09)
[2021-02-09 09:12] LABS: Glucose Point of Care 83 mg/dl (65-105)
[2021-02-09] MEDS: KETOROLAC 15 MG/ML VIAL (*BKC) IV PUSH (09:16)
[2021-02-09] MEDS: ceFAZolin 3 GM/D5W 100 ML 100 ML IVPB (09:28)
[2021-02-09] MEDS: LACTATED RINGERS 1,000 ML 30 ML IV CONT ×2 (10:01→12:20)
--- NOTE | 2021-02-09 12:24 | W.PM.PROC2 ---
Procedure Note - Detailed Date of Procedure 02/09/21 Pre-op Diagnosis leiomyoma of uterine Post-op Diagnosis same Procedure Performed Total laparoscopic hysterectomy and bilateral salpingectomy. Bilateral ovarian cystectomy. Surgeon Marcella Manley MD Anesthesia general Indications Severe menometrorrhagia Findings Moderate sized uterus, normal appearing ovaries and normal-appearing tubes. Bilateral ovarian cysts Description of Procedure This patient was taken to the operating room. She was prepped and draped in the dorsal lithotomy position after induction of general anesthesia. The uterine manipulator and Blayne cup were placed. This was done with a speculum and tenaculum. The speculum was placed. The cervix was grasped with a tenaculum. The stay sutures were placed at 3 and 9:00 a.m.. The stay sutures of 0 Vicryl were brought through the appropriately sized Blayne cup. The tip of the ALBERT manipulator was placed in the intrauterine cavity. The cup was slid into place around the cervix and into the fornices. It was locked into place. The sutures were then wrapped around the handle and tied under tension. A 5 mm skin incision was made in the left upper quadrant the abdomen. A 5 mm trocar was inserted into the intrauterine cavity under direct visualization of the scope. Pneumoperitoneum was achieved. A left lower quadrant 11 mm incision was made with scalpel. An 11 mm trocar was inserted into the anterior abdominal cavity under direct visualization the scope. A 5 mm infraumbilical incision was made with a scalpel and a 5 mm trocar was inserted the intra-abdominal cavity under direct visualization of the scope. Bilateral ureteral lysis was performed. This was done from the pelvic brim down to the uterine artery. This was done with careful dissection using sharp and blunt dissection. The fallopian tubes were removed bilaterally. The mesosalpinx around the fallopian tubes were cauterized transected with LigaSure cautery. This was done in a bilateral fashion from the ovary to the uterine cornua. The fallopian tube was transected at the uterine cornu and amputated. The tube was taken out the left lower quadrant trocar site. In a stepwise fashion along the lateral aspects of the uterus the round ligament and broad ligaments were cauterized transected down to the level of the uterine arteries. A bladder flap was created in the bladder was moved distally to the end of the cervix and over the Blayne cup. The bilateral uterine arteries were cauterized and transected. Colpotomy was then performed. In a circumferential fashion the vagina was transected using unipolar cautery. The incision was made down on the Blayne cup. The uterus and cervix were taken out through the vagina. A pneumo occluder was placed in the vagina. The vaginal cuff was closed with a 0 V lock suture in a running fashion. The pelvis was irrigated with copious amounts antibiotic irrigation. The ureters were again examined and found to be intact and flowing freely under the uterine arteries into the bladder. The bladder was intact. It was examined directly. The vagina was irrigated with Betadine solution after removal of the Pneumo occluder. The patient was taken to recovery room. She was stable condition. Sponge lap and needle counts were correct x2. Estimated Blood Loss 200 Drains Yes Packing No Pathology yes Complications No immediate complications Condition stable Disposition floor
[2021-02-09 12:28] LABS: Glucose Point of Care 123 mg/dl (65-105)
[2021-02-09] MEDS: fentaNYL CITRATE INJ (*CRX) 100 MCG/2 ML VIAL 25 MCG IV PUSH ×8 (12:38→13:07)
[2021-02-09] MEDS: HYDROmorphone HCL INJ (*CRX) 1 MG/ML SYR 0.5 MG IV PUSH ×4 (13:15→13:30)
--- NOTE | 2021-02-09 14:34 | OBPPTRN ---
1400 Patient transferred to post room #277 via bed. Support person present. Oriented to unit, room, information board, rooming in, admission packet and security measures. Patient verbalizes understanding.
[2021-02-09] MEDS: KETOROLAC 30 MG/ML VIAL (*BKC) IV PUSH ×2 (15:10→21:06)
[2021-02-09] MEDS: DEXTROSE 5%/0.45% SOD CHL 1,000 ML 125 ML IV CONT ×2 (15:11→23:22)
[2021-02-09] MEDS: FAMOTIDINE 20 MG TABLET PO (16:34)
[2021-02-09] MEDS: EMPAGLIFLOZIN 25 MG TABLET PO (16:35)
[2021-02-09] MEDS: FLUoxetine HCL 20 MG CAPSULE PO (16:35)
[2021-02-09 16:39] LABS: Glucose Point of Care 135 mg/dl (65-105)
[2021-02-09] MEDS: HYDROcodone/acetaminophen (*CRX) 10-325 MG TABLET 1 TAB PO (16:45)
[2021-02-09] MEDS: ONDANSETRON INJ 4 MG/2 ML VIAL IV PUSH (16:51)
[2021-02-09 21:05] LABS: Glucose Point of Care 131 mg/dl (65-105)
[2021-02-09] MEDS: HYDROcodone/acetaminophen (*CRX) 5-325 MG TABLET 1 TAB PO (21:06)
[2021-02-10 05:03] VITALS: BP 131/74; PULSE 91; RESP 20; TEMP 36.7
[2021-02-10 05:07] LABS: Glucose Point of Care 122 mg/dl (65-105)
[2021-02-10] MEDS: IBUPROFEN 600 MG TABLET PO (07:02)
[2021-02-10] MEDS: HYDROcodone/acetaminophen (*CRX) 5-325 MG TABLET 1 TAB PO (07:03)
--- NOTE | 2021-02-10 07:36 | PM.GYNPNOP ---
HUMAN RESOURCES EXECUTIVE - A/P Postoperative Procedures: Procedures Operation Date: 02/09/21 10:00 Actual Procedure Side Surgeon p Total Laparoscopic Hysterectomy with Bilateral Salpingectomy Bilateral RVerona Manley MD Postoperative day: 1 Postoperative status: doing well and other (Tollerating Regular Diet) Postoperative plan: routine post-op care and discharge Time Spent With Patient Time: Total time spent is greater than 50% in coordination of care (as documented) at patient's floor/unit and/or counseling patient: Time with patient: 15 - 25 minutes HUMAN RESOURCES EXECUTIVE- PN:Subj Post-Op Subjective Date/time seen: 02/10/21 07:36 Subjective: patient reports feeling better, pain is well controlled and patient is tolerating oral intake Exam Const: General: cooperative, healthy appearing, comfortable and no acute distress Resp: Auscultation: no crackles, no rales, no rhonchi and no wheezes Cardio: Rhythm: regular rhythm Heart sounds: no click and no murmurs GI: Inspection: non-distended Auscultation: normal bowel sounds Other: Incisions - CDI Extrem: General: normal to inspection, no pedal edema and no calf tenderness HUMAN RESOURCES EXECUTIVE - PN: Obj Data Vital Signs Vital Signs: Vital Signs - 24 hr 02/09/21 08:03 02/09/21 12:20 02/09/21 12:35 Temperature 96.8 F L 96.9 F L Pulse Rate 88 81 83 Respiratory Rate 18 20 17 Blood Pressure 139/67 152/79 H 137/99 H Pulse Oximetry 100 99 100 02/09/21 12:50 02/09/21 13:00 02/09/21 13:15 Temperature Pulse Rate 79 80 83 Respiratory Rate 12 12 12 Blood Pressure 134/70 117/72 142/75 H Pulse Oximetry 96 98 96 02/09/21 13:30 02/09/21 13:45 02/09/21 13:52 Temperature Pulse Rate 82 87 87 Respiratory Rate 14 14 14 Blood Pressure 142/75 H 144/75 H 134/77 Pulse Oximetry 94 92 95 02/09/21 16:33 02/09/21 19:08 02/10/21 05:03 Temperature 98.4 F 98.2 F 98.0 F Pulse Rate 102 H 104 H 91 Respiratory Rate 16 16 20 Blood Pressure 154/83 H 149/81 H 131/74 Pulse Oximetry 96 Intake/Output Intake/Output: Intake & Output 02/07/21 02/08/21 02/09/21 02/10/21 23:59 23:59 23:59 23:59 Intake Total 1800 300 Output Total 980 1000 Balance 820 -700 Meds/Results Medications: Active Medications Generic Name Dose Route Start Last Admin Trade Name Freq PRN Reason Stop Dose Admin Hydrocodone Bitart/Acetaminophen 1 tab 02/09/21 14:37 02/10/21 07:03 Hydrocodone/Acetaminophen (*Crx) 5-325 Mg Tablet PO 1 tab Q3H PRN Administration Pain Rated 5 or Less Hydrocodone Bitart/Acetaminophen 1 tab 02/09/21 14:37 02/09/21 16:45 Hydrocodone/Acetaminophen (*Crx) 10-325 Mg Tablet PO 1 tab Q3H PRN Administration Pain Rated 6 or Greater Albuterol 2 puff 02/09/21 14:37 Albuterol Sulfate (*Sp) Aerosol 1 Puff INHALATION Q6H PRN Shortness Of Breath Empagliflozin 25 mg 02/09/21 16:00 02/09/21 16:35 Empagliflozin 25 Mg Tablet PO 25 mg DAILY URSULA Administration Famotidine 20 mg 02/09/21 16:00 02/09/21 16:34 Famotidine 20 Mg Tablet PO 20 mg DAILY URSULA Administration Fluoxetine HCl 20 mg 02/09/21 16:00 02/09/21 16:35 Fluoxetine Hcl 20 Mg Capsule PO 20 mg DAILY URSULA Administration Ibuprofen 600 mg 02/09/21 14:37 02/10/21 07:02 Ibuprofen 600 Mg Tablet PO 600 mg Q6H PRN Administration Cramping Insulin Glargine 30 units 02/09/21 21:00 02/09/21 21:00 Insulin Glargine (*Bkc) 100 Units/Ml SUB-Q Not Given HS URSULA Ketorolac Tromethamine 30 mg 02/09/21 14:37 02/09/21 21:06 Ketorolac 30 Mg/Ml Vial (*Bkc) IV PUSH 02/14/21 14:36 30 mg Q6H PRN Administration Pain Rated 4-6 Lorazepam 0.5 mg 02/09/21 14:37 Lorazepam (*Crx) 0.5 Mg Tablet PO BID PRN Anxiety Naloxone HCl 0.1 mg 02/09/21 14:37 Naloxone Hcl 0.4 Mg/Ml Vial IV PUSH Q2M PRN Respiratory rate less than 10 Ondansetron HCl 4 mg 02/09/21 14:37 02/09/21 16:51 Ondansetron Inj 4 Mg/2 Ml Vial IV PUSH 4 mg Q6H PRN Adminis
[2021-02-10 08:45] VITALS: BP 129/61; PULSE 85; RESP 18; TEMP 36.6; O2SAT 100
[2021-02-10 08:51] LABS: Glucose Point of Care 177 mg/dl (65-105)
[2021-02-10] MEDS: FAMOTIDINE 20 MG TABLET PO (09:30)
[2021-02-10] MEDS: FLUoxetine HCL 20 MG CAPSULE PO (09:30)
[2021-02-10] MEDS: EMPAGLIFLOZIN 25 MG TABLET PO (09:30)
--- NOTE | 2021-02-10 10:17 | WPDANESPN ---
Anes - Prog Note Post-Op Date/Time: 02/10/21 10:17 Cardiovascular status: normal Respiratory status: normal Airway patency: baseline Mental status: baseline Post-Op hydration status: normal Vital Signs: Last Vital Signs Temp 36.6 C 02/10/21 08:45 Pulse 85 02/10/21 08:45 Resp 18 02/10/21 08:45 BP 129/61 02/10/21 08:45 Pulse Ox 100 02/10/21 08:45 Pain Score (VAS): 0 I/O: Intake & Output 02/09/21 02/10/21 02/10/21 23:59 07:59 15:59 Intake Total 1200 300 Output Total 800 1250 Balance 400 -950 02/09/21 02/09/21 02/09/21 12:26 16:33 21:01 POC Capillary Glucose 123 H 135 H 131 H 02/10/21 02/10/21 04:57 08:49 POC Capillary Glucose 122 H 177 H Post-procedural complaints: none Patient Feedback: Patient satisfied with anesthetic care.
== END 2021-02-10 11:49 | disposition home or self-care (01) ==
LOC: ANHSURGERY 07:49 → ANHOB2 15:01
PROVIDERS: PCP Family Medicine; Visit Provider Obstetrics & Gynecology
PROC: 0UT9FZZ Resection of Uterus, Via Natural or Artificial Opening With Percutaneous Endoscopic Assistance (ICD-10-PCS; CPT 58573; principal; 2021-02-09 10:00)
DX: N92.1 Excessive and frequent menstruation with irregular cycle (principal); N88.2 Stricture and stenosis of cervix uteri; N80.0 Endometriosis of uterus; N83.6 Hematosalpinx; N83.8 Other noninflammatory disorders of ovary, fallopian tube and broad ligament; E11.9 Type 2 diabetes mellitus without complications; F17.210 Nicotine dependence, cigarettes, uncomplicated; E66.01 Morbid (severe) obesity due to excess calories; Z68.43 Body mass index [BMI] 50.0-59.9, adult; Z79.51 Long term (current) use of inhaled steroids; Z79.4 Long term (current) use of insulin; Z79.84 Long term (current) use of oral hypoglycemic drugs
CPT/HCPCS: 58573; 36415; 82948; 86850; 86900; 86901; 88307; 93005; 99199; A9270; J0330; J0690; J1100; J1170; J1885; J2250; J2405; J2704; J2710; J3010; J7030; J7120